=== PATIENT | female | born 1990 | race Caucasian/White ===

== ENCOUNTER 2020-08-06 10:18 | Observation (INO) | payer OTHER, SELFPAY ==
[2020-08-06] VITALS (13 sets, daily range): BP systolic 93–155; BP diastolic 46–99; PULSE 72–86; RESP 14–18; TEMP 36.2–37.2; O2SAT 92–100; BMI 34.4
--- NOTE | 2020-08-06 10:32 | ED_ITS ---
HPI - Abdominal Pain General: Chief Complaint: Abdominal Pain Stated Complaint: Abdominal Pain Time Seen by Provider: 08/06/20 10:21 History of Present Illness: HPI narrative: 30-year-old female comes in complaining of right upper quadrant pain epigastric pain radiating around to her back and across to the left side. She relates she began yesterday few hours after eating fast food. She has had previous episodes in the past with similar symptoms not quite as intense. She has been nauseous without vomiting or diarrhea. She is had dark-colored stools in the past of these episodes but never had any acholic school stools or melanic stools or frankly bloody stools MD elicited complaint: abdominal pain Onset (ago): hour(s) Pain Consistency: constant Location: Epigastric Severity: moderate Quality: cramping Radiation: LUQ, RUQ and back Migration to: no migration Exacerbating factors: eating ([place] foods) Relieving factors: nothing Associated Symptoms: Reports anorexia, belching, bloating, change in bowel habits, change in stool character and GI cramping; Denies chills, coffee ground emesis, constipation, diarrhea, dyspepsia, dysuria, excessive flatus, fever(s), heartburn, hematochezia, hematuria, hematemesis, fecal incontinence, loose stools, melena, nausea, poor appetite, syncope and vomiting Review of Systems Const: Denies: fever(s) or chills ENMT: Denies: throat pain, ear or mastoid pain, nasal discharge or nasal congestion Card: Denies: syncope Resp: Denies: dyspnea, productive cough or non-productive cough GI: Reports: bloating, GI cramping, belching, change in bowel habits and change in stool character; Denies: nausea, vomiting, hematemesis, coffee ground emesis, heartburn, diarrhea, constipation, excessive flatus, fecal incontinence, hematochezia or melena : Denies: dysuria or hematuria Skin/Breast: Denies: rash or pruritus [facility] ED PFSH: Medical History (Updated 08/06/20 @ 16:05 by Pa Newby MD) Anemia Family History (Updated 08/06/20 @ 16:05 by Pa Newby MD) Other Cancer Social History (Updated 08/06/20 @ 16:05 by Pa Newby MD) Smoking and tobacco status: current every day smoker Alcohol intake: current Substance/Drug Use: unknown Household members: spouse Housing: House Physical Exam Const: COMMON NORMALS: no acute distress GENERAL APPEARANCE: cooperative and comfortable ORIENTATION/CONSCIOUSNESS: Yes awake, Yes oriented to person, Yes oriented to place and Yes oriented to time HENMT: COMMON NORMALS: normocephalic, atraumatic and hearing grossly normal bilaterally HEAD & SCALP: normocephalic and atraumatic Neck/C-Spine: COMMON NORMALS: no JVD Resp: COMMON NORMALS: normal respiratory effort, No retractions, No use of accessory muscles and clear to auscultation bilaterally AUSCULTATION: clear to auscultation bilaterally Cardio: COMMON NORMALS: no JVD, regular rate, regular rhythm and No murmurs present (Cardio) RATE: regular rate RHYTHM: regular rhythm GI: COMMON NORMALS: Soft to palpation and No hepatosplenomegaly present AUS CULTATION: Yes normoactive bowel sounds PALPATION: Yes Soft to palpation, Yes Tenderness to palpation present (GI) Details: RUQ (Positive Mcgarry's), No Guarding due to palpation present (GI) and Yes No hepatosplenomegaly present Extremity: COMMON NORMALS: normal to inspection, capillary refill normal, no clubbing, cyanosis or edema, no calf tenderness and no pedal edema Neuro: SENSORIUM/ORIENTATION: Yes oriented to person, Yes oriented to place and Yes oriented to time Skin: COMMON NORMALS: no rashes or lesions noted GENERAL SKIN EXAM: no rashes or lesions noted Course Vital Signs: Vital signs: Vital Signs Temperature 97.9 F 08/07/20 13:07 Pulse Rate 73 08/07/20 13:07 Respiratory Rate 18 08/07/20 13:07 Blood Pressure 120/69 08/07/20 13:07 Pulse Oximetry 96 08/07/20 13:07 MDM - Abdominal Pain MDM Narrative: Medical decision making narrative: Presenting hemoglobin 5.3. Will admit for IV proton pump inhibitor as well as possible EGD a lot of her losses are chronic. She has had problems with excessive vaginal bleeding in the past but has not had a period in 3 months. We will go ahead and admit her to the hospitalist service. Lab Data: Labs: Lab Results 08/06/20 08/06/20 08/06/20 Range/Units 10:36 10:36 10:36 WBC Cancelled Corrected WBC Cancelled RBC Cancelled Hgb Cancelled Hct Cancelled MCV Cancelled MCH Cancelled MCHC Cancelled RDW Cancelled Plt Count Cancelled MPV Cancelled Gran % Cancelled Neut % (Auto) Cancelled Lymph % (Auto) Cancelled [place] % (Auto) Cancelled Eos % (Auto) Cancelled Baso % (Auto) Cancelled Reticulocyte % (Au to) % Neut # (Auto) Cancelled Lymph # (Auto) Cancelled [place] # (Auto) Cancelled Eos # (Auto) Cancelled Baso # (Auto) Cancelled Absolute Gran (aut o) Cancelled Nucleated RBC % (a uto) Cancelled Nucleated RBCs # Cancelled ESR (0-15) mm/hr PT (12.1-14.9) SECO NDS INR (0.8-1.2) Sodium 139 (136-145) mmol/L Potassium 4.0 (3.5-5.1) mmol/L Chloride 106 (98-107) mmol/L Carbon Dioxide 24 (22-29) mmol/L Anion Gap 13.0 (5-19) BUN 14 (6-20) mg/dL Creatinine 0.5 (0.5-0.9) mg/dL GFR Calculation 143.9 H (90-130) mL/min Glucose 101 (65-115) mg/dL Calculated Osmolal ity 289 (285-295) mOsm/k g Calcium 9.0 (8.5-10.5) mg/dL Magnesium 2.0 (1.7-2.3) mg/dL Iron (37-145) ug/dL TIBC mcg/dl % Saturation (20-50) % Unsat Iron Binding (112-347) ug/dL Total Bilirubin 0.3 (0.15-1.2) mg/dL AST 9 (0-32) U/L ALT 7 (0-33) U/L Alkaline Phosphata se 113 H (35-105) IU/L C-Reactive Protein (0.0-4.9) mg/L Total Protein 7.6 (6.6-8.7) g/dL Albumin 4.4 (3.5-5.2) g/dL Globulin 3.2 (1.3-4.6) g/dL Lipase 28 (13-60) U/L Vitamin B12 (232-1245) pg/mL Folate (4.8-37.3) ng/mL TSH (0.27-4.20) uIU/ mL HCG, Qual Negative (Negative) Urine Color (Yellow) Urine Appearance (CLEAR) Urine pH (5-7) Ur Specific Gravit y (1.005-1.030) Urine Protein (Negative) Urine Glucose (UA) (Normal) Urine Ketones (Negative) Urine Blood (Negative) Urine Nitrate (Negative) Urine Bilirubin (Negative) Urine Urobilinogen (Negative) mg/dL Ur Leukocyte Sirena ase (Negative) Urine RBC (0-2) /hpf Urine WBC (0-5) /hpf Ur Squamous Epith Cells (0-5) /hpf Amorphous Sediment Urine Bacteria (NONE) /hpf Urine Mucus /hpf Blood Type Rho(D) Type Antibody Screen Crossmatch 08/06/20 08/06/20 08/06/20 Range/Units 10:36 10:36 10:36 WBC Corrected WBC RBC Hgb Hct MCV MCH MCHC RDW Plt Count MPV Gran % Neut % (Auto) Lymph % (Auto) [place] % (Auto) Eos % (Auto) Baso % (Auto) Reticulocyte % (Au to) 1.6200 % Neut # (Auto) Lymph # (Auto) [place] # (Auto) Eos # (Auto) Baso # (Auto) Absolute Gran (aut o) Nucleated RBC % (a uto) Nucleated RBCs # ESR (0-15) mm/hr PT (12.1-14.9) SECO NDS INR (0.8-1.2) Sodium (136-145) mmol/L Potassium (3.5-5.1) mmol/L Chloride (98-107) mmol/L Carbon Dioxide (22-29) mmol/L Anion Gap (5-19) BUN (6-20) mg/dL Creatinine (0.5-0.9) mg/dL GFR Calculation (90-130) mL/min Glucose (65-115) mg/dL Calculated Osmolal ity (285-295) mOsm/k g Calcium (8.5-10.5) mg/dL Magnesium (1.7-2.3) mg/dL Iron 12 L (37-145) ug/dL TIBC 352 mcg/dl % Saturation 3.4 L (20-50) % Unsat Iron Binding 340 (112-347) ug/dL Total Bilirubin (0.15-1.2) mg/dL AST (0-32) U/L ALT (0-33) U/L Alkaline Phosphata se (35-105) IU/L C-Reactive Protein (0.0-4.9) mg/L Total Protein (6.6-8.7) g/dL Albumin (3.5-5.2) g/dL Globulin (1.3-4.6) g/dL Lipase (13-60) U/L Vitamin B12 640 (232-1245) pg/mL Folate 3.1 L (4.8-37.3) ng/mL TSH (0.27-4.20) uIU/ mL HCG, Qual (Negative) Urine Color (Yellow) Urine Appearance (CLEAR) Urine pH (5-7) Ur Specific Gravit y (1.005-1.030) Urine Protein (Negative) Urine Glucose (UA) (Normal) Urine Ketones (Negative) Urine Blood (Negative) Urine Nitrate (Negative) Urine Bilirubin (Negative) Urine Urobilinogen (Negative) mg/dL Ur Leukocyte Sirena ase (Negative) Urine RBC (0-2) /hpf Urine WBC (0-5) /hpf Ur Squamous Epith Cells (0-5) /hpf Amorphous Sediment Urine Bacteria (NONE) /hpf Urine Mucus /hpf Blood Type Rho(D) Type Antibody Screen Crossmatch 08/06/20 08/06/20 08/06/20 Range/Units 10:36 10:36 10:52 WBC Corrected WBC RBC Hgb Hct MCV MCH MCHC RDW Plt Count MPV Gran % Neut % (Auto) Lymph % (Auto) [place] % (Auto) Eos % (Auto) Baso % (Auto) Reticulocyte % (Au to) % Neut # (Auto) Lymph # (Auto) [place] # (Auto) Eos # (Auto) Baso # (Auto) Absolute Gran (aut o) Nucleated RBC % (a uto) Nucleated RBCs # ESR (0-15) mm/hr PT 14.10 (12.1-14.9) SECO NDS INR 1.06 (0.8-1.2) Sodium (136-145) mmol/L Potassium (3.5-5.1) mmol/L Chloride (98-107) mmol/L Carbon Dioxide (22-29) mmol/L Anion Gap (5-19) BUN (6-20) mg/dL Creatinine (0.5-0.9) mg/dL GFR Calculation (90-130) mL/min Glucose (65-115) mg/dL Calculated Osmolal ity (285-295) mOsm/k g Calcium (8.5-10.5) mg/dL Magnesium (1.7-2.3) mg/dL Iron (37-145) ug/dL TIBC mcg/dl % Saturation (20-50) % Unsat Iron Binding (112-347) ug/dL Total Bilirubin (0.15-1.2) mg/dL AST (0-32) U/L ALT (0-33) U/L Alkaline Phosphata se (35-105) IU/L C-Reactive Protein (0.0-4.9) mg/L Total Protein (6.6-8.7) g/dL Albumin (3.5-5.2) g/dL Globulin (1.3-4.6) g/dL Lipase (13-60) U/L Vitamin B12 (232-1245) pg/mL Folate (4.8-37.3) ng/mL TSH 1.37 (0.27-4.20) uIU/ mL HCG, Qual (Negative) Urine Color Yellow (Yellow) Urine Appearance Sl hazy (CLEAR) Urine pH 5 (5-7) Ur Specific Gravit y 1.025 (1.005-1.030) Urine Protein Neg (Negative) Urine Glucose (UA) Norm (Normal) Urine Ketones Negative (Negative) Urine Blood Neg (Negative) Urine Nitrate Negative (Negative) Urine Bilirubin 1+ H (Negative) Urine Urobilinogen Norm (Negative) mg/dL Ur Leukocyte Sirena ase Negative (Negative) Urine RBC None (0-2) /hpf Urine WBC None (0-5) /hpf Ur Squamous Epith Cells 0-4 H (0-5) /hpf Amorphous Sediment Not Reportable Urine Bacteria Trace (NONE) /hpf Urine Mucus Trace /hpf Blood Type Rho(D) Type Antibody Screen Crossmatch 08/06/20 08/06/20 08/06/20 Range/Units 11:04 11:04 11:04 WBC 4.1 Corrected WBC RBC 3.75 L Hgb 5.3 L* Hct 22.6 L MCV 60.3 L MCH 14.1 L MCHC 23.5 L RDW 22.2 H Plt Count 204 MPV 9.9 Gran % Neut % (Auto) 62.3 Lymph % (Auto) 26.5 [place] % (Auto) 7.1 Eos % (Auto) 3.2 Baso % (Auto) 0.7 Reticulocyte % (Au to) % Neut # (Auto) 2.54 Lymph # (Auto) 1.1 [place] # (Auto) 0.3 Eos # (Auto) 0.1 Baso # (Auto) 0.0 Absolute Gran (aut o) Nucleated RBC % (a uto) 0 Nucleated RBCs # 0.0 ESR 63 H (0-15) mm/hr PT (12.1-14.9) SECO NDS INR (0.8-1.2) Sodium (136-145) mmol/L Potassium (3.5-5.1) mmol/L Chloride (98-107) mmol/L Carbon Dioxide (22-29) mmol/L Anion Gap (5-19) BUN (6-20) mg/dL Creatinine (0.5-0.9) mg/dL GFR Calculation (90-130) mL/min Glucose (65-115) mg/dL Calculated Osmolal ity (285-295) mOsm/k g Calcium (8.5-10.5) mg/dL Magnesium (1.7-2.3) mg/dL Iron (37-145) ug/dL TIBC mcg/dl % Saturation (20-50) % Unsat Iron Binding (112-347) ug/dL Total Bilirubin (0.15-1.2) mg/dL AST (0-32) U/L ALT (0-33) U/L Alkaline Phosphata se (35-105) IU/L C-Reactive Protein 10.1 H (0.0-4.9) mg/L Total Protein (6.6-8.7) g/dL Albumin (3.5-5.2) g/dL Globulin (1.3-4.6) g/dL Lipase (13-60) U/L Vitamin B12 (232-1245) pg/mL Folate (4.8-37.3) ng/mL TSH (0.27-4.20) uIU/ mL HCG, Qual (Negative) Urine Color (Yellow) Urine Appearance (CLEAR) Urine pH (5-7) Ur Specific Gravit y (1.005-1.030) Urine Protein (Negative) Urine Glucose (UA) (Normal) Urine Ketones (Negative) Urine Blood (Negative) Urine Nitrate (Negative) Urine Bilirubin (Negative) Urine Urobilinogen (Negative) mg/dL Ur Leukocyte Sirena ase (Negative) Urine RBC (0-2) /hpf Urine WBC (0-5) /hpf Ur Squamous Epith Cells (0-5) /hpf Amorphous Sediment Urine Bacteria (NONE) /hpf Urine Mucus /hpf Blood Type Rho(D) Type Antibody Screen Crossmatch 08/06/20 Range/Units 11:45 WBC Corrected WBC RBC Hgb Hct MCV MCH MCHC RDW Plt Count MPV Gran % Neut % (Auto) Lymph % (Auto) [place] % (Auto) Eos % (Auto) Baso % (Auto) Reticulocyte % (Au to) % Neut # (Auto) Lymph # (Auto) [place] # (Auto) Eos # (Auto) Baso # (Auto) Absolute Gran (aut o) Nucleated RBC % (a uto) Nucleated RBCs # ESR (0-15) mm/hr PT (12.1-14.9) SECO NDS INR (0.8-1.2) Sodium (136-145) mmol/L Potassium (3.5-5.1) mmol/L Chloride (98-107) mmol/L Carbon Dioxide (22-29) mmol/L Anion Gap (5-19) BUN (6-20) mg/dL Creatinine (0.5-0.9) mg/dL GFR Calculation (90-130) mL/min Glucose (65-115) mg/dL Calculated Osmolal ity (285-295) mOsm/k g Calcium (8.5-10.5) mg/dL Magnesium (1.7-2.3) mg/dL Iron (37-145) ug/dL TIBC mcg/dl % Saturation (20-50) % Unsat Iron Binding (112-347) ug/dL Total Bilirubin (0.15-1.2) mg/dL AST (0-32) U/L ALT (0-33) U/L Alkaline Phosphata se (35-105) IU/L C-Reactive Protein (0.0-4.9) mg/L Total Protein (6.6-8.7) g/dL Albumin (3.5-5.2) g/dL Globulin (1.3-4.6) g/dL Lipase (13-60) U/L Vitamin B12 (232-1245) pg/mL Folate (4.8-37.3) ng/mL TSH (0.27-4.20) uIU/ mL HCG, Qual (Negative) Urine Color (Yellow) Urine Appearance (CLEAR) Urine pH (5-7) Ur Specific Gravit y (1.005-1.030) Urine Protein (Negative) Urine Glucose (UA) (Normal) Urine Ketones (Negative) Urine Blood (Negative) Urine Nitrate (Negative) Urine Bilirubin (Negative) Urine Urobilinogen (Negative) mg/dL Ur Leukocyte Sirena ase (Negative) Urine RBC (0-2) /hpf Urine WBC (0-5) /hpf Ur Squamous Epith Cells (0-5) /hpf Amorphous Sediment Urine Bacteria (NONE) /hpf Urine Mucus /hpf Blood Type O Positive Rho(D) Type Positive Antibody Screen Negative Crossmatch See Detail Discharge Plan Discharge Patient Disposition: Admitted As Inpatient Admit Provider: Pa Newby Condition: Stable Discharge Diet: Regular Discharge Activity: Resume usual activity Patient Instructions: Omeprazole (By mouth), Folic Acid (By mouth), Bisacodyl (By mouth), Acute Abdominal Pain (GEN), Anemia (GEN) Additional Instructions: Please follow-up with your primary care provider within next 1 week. You might need to follow-up with Dr. Terry who from residence life director for further work-up of anemia. Discharge Date/Time: 08/06/20 14:04 Coding Level of Care Code ED Director Of Design for [facility] Fwd Exam Comprehensive
--- NOTE | 2020-08-06 10:45 | USR_ITS ---
PROCEDURE INFORMATION: Exam: US Abdomen, Limited; Right Upper Quadrant Exam date and time: 08/06/2020 11:40 AM Age: 30 years old Clinical indication: Abdominal pain; Epigastric; Additional info: Ruq abd pain TECHNIQUE: Imaging protocol: US abdomen. Real time ultrasound with image documentation. Limited exam focused on the right upper quadrant. COMPARISON: CT abdomen pelvis w con* [id number] 01/27/2014 2:31 AM FINDINGS: Liver: 15.6 cm liver. Gallbladder: 2.1 mm gallbladder wall. Sonographically negative Mcgarry's sign suggesting no cholecystitis. Common bile duct: 3.1 mm common bile duct. Pancreas: Pancreas mostly obscured by bowel gas. Right kidney: 12.7 x 4.1 x 5.1 cm right kidney. 1.0 cm right renal cortex. Aorta: 1.4 cm abdominal aortic diameter. Portal venous: Patent portal vein. Inferior vena cava: 1.5 cm IVC diameter. Other findings: Examination is limited by bowel gas. US/US gall bladder [id number] IMPRESSION: Normal gallbladder.
--- NOTE | 2020-08-06 10:46 | XRR_ITS ---
PROCEDURE INFORMATION: Exam: XR Chest, 1 View Exam date and time: 08/06/2020 10:47 AM Age: 30 years old Clinical indication: Pain; Other: Epigastric; Additional info: Dyspnea/cough TECHNIQUE: Imaging protocol: XR of the chest Views: 1 view. COMPARISON: No relevant prior studies available. FINDINGS: Lungs: Unremarkable. No consolidation. Pleural space: Unremarkable. No pleural effusion. No pneumothorax. Heart/Mediastinum: Unremarkable. No cardiomegaly. Bones/joints: Unremarkable. XR/XR chest 1V portable [id number] IMPRESSION: No acute findings.
[2020-08-06 11:07] LABS: Bilirubin Urine 1+ (Negative); Blood Urine Neg (Negative); Glucose Urine UA Norm (Normal); Ketones Urine Negative (Negative); Nitrate Urine Negative (Negative); Protein Urine Neg (Negative); Specific Gravity, Urine 1.025 (1.005-1.030); Urine Appearance SL Hazy (CLEAR); Urine Color Yellow (Yellow); Urobilinogen Urine Norm (Negative); pH Urine 5 (5-7)
[2020-08-06 11:08] LABS: Add Urine Culture? No; Add Urine Microscopic? YES; Bacteria Urine TRACE /hpf; Leukocyte Esterase Urine Negative (Negative); Mucus Urine TRACE /hpf; Squamous Epithelial Cell Urine 0-4 /hpf (0-5)
[2020-08-06 11:09] LABS: Alanine Aminotransferase 7 U/L (0-33); Albumin Level 4.4 g/dL (3.5-5.2); Alkaline Phosphatase 113 IU/L (35-105); Aspartate Amino Transferase 9 U/L (0-32); Blood Urea Nitrogen 14 mg/dL (6-20); Carbon Dioxide 24 mmol/L (22-29); Chloride 106 mmol/L (98-107); Creatinine Clr Calc Pharmacy 197.8489; Globulin 3.2 g/dL (1.3-4.6); Glomerular Filtration Rate 143.9 mL/min (90-130); Glucose 101 mg/dL (65-115); Lipase 28 U/L (13-60); Osmolality Calculated 289 mOsm/kg (285-295); Sodium 139 mmol/L (136-145); Total Bilirubin 0.3 mg/dL (0.15-1.2); Total Protein 7.6 g/dL (6.6-8.7)
[2020-08-06 11:14] LABS: Basophils % 0.7 %; Eosinophils # 0.1 10^3/uL (0.0-0.8); Eosinophils % 3.2 %; Hematocrit 22.6 % (37.0-47.0); Lymphocytes # 1.1 10^3/uL (0.8-4.8); Lymphocytes % 26.5 %; Mean Corpuscular HGB Conc 23.5 g/dL (30.0-36.0); Mean Corpuscular Hemoglobin 14.1 pg (28.0-34.0); Mean Corpuscular Volume 60.3 fL (81-99); Monocytes # 0.3 10^3/uL (0.2-0.9); Monocytes % 7.1 %; Neutrophils # 2.54 10^3/uL (1.8-7.7); Neutrophils % 62.3 %; Nucleated Red Blood Cells % 0 %; Platelet Count 204 10^3/cmm (130-400); Red Blood Count 3.75 10^6/uL (4.1-5.3); Red Cell Distribution Width 22.2 % (12.1-15.1); White Blood Count 4.1 10^3/uL (4.0-10.0)
[2020-08-06 11:15] LABS: Mean Platelet Volume 9.9 fL (7.4-10.4)
[2020-08-06 11:16] LABS: Hemoglobin 5.3 g/dL (11.5-15.3)
[2020-08-06 11:16] LABS: HCG, Serum Qual Negative (Negative)
--- NOTE | 2020-08-06 11:31 | CTR_ITS ---
PROCEDURE INFORMATION: Exam: CT Abdomen And Pelvis With Contrast Exam date and time: 08/06/2020 11:53 AM Age: 30 years old Clinical indication: Abdominal pain; Epigastric; Additional info: Abd pain TECHNIQUE: Imaging protocol: Computed tomography of the abdomen and pelvis with intravenous contrast. Radiation optimization: All CT scans at this facility use at least one of these dose optimization techniques: automated exposure control; mA and/or kV adjustment per patient size (includes targeted exams where dose is matched to clinical indication); or iterative reconstruction. Contrast material: OMNI 300; Contrast volume: 95 ml; Contrast route: INTRAVENOUS (IV); COMPARISON: CT abdomen pelvis w con* [id number] 01/27/2014 2:31 AM RADIATION DOSE METRICS: Total DLP (mGy-cm): 1462.84 FINDINGS: Liver: Normal. No mass. Gallbladder and bile ducts: Normal. No calcified stones. No ductal dilation. Pancreas: Normal. No ductal dilation. Spleen: Normal. No splenomegaly. Adrenals: Normal. No mass. Kidneys and ureters: Normal. No hydronephrosis. Stomach and bowel: Unremarkable. No obstruction. No mucosal thickening. Appendix: No evidence of appendicitis. Intraperitoneal space: Unremarkable. No free air. No significant fluid collection. Vasculature: Unremarkable. No abdominal aortic aneurysm. Lymph nodes: Unremarkable. No enlarged lymph nodes. Urinary bladder: Unremarkable as visualized. Reproductive: Unremarkable as visualized. Bones/joints: Unremarkable. No acute fracture. Soft tissues: Unremarkable. Other findings: Mild levoscoliosis. CT/CT abdomen pelvis w con* [id number] IMPRESSION: No acute findings. Radiation Dose CTDIVOL = (mGy): DLP = 1462.84 (mGy-cm)
[2020-08-06] MEDS: iohexol 300 mg/mL 100 mL Btl IV (12:01)
[2020-08-06] MEDS: pantoprazole 40 mg SDV IVP (12:49)
[2020-08-06 14:40] LABS: INR 1.06 (0.8-1.2)
[2020-08-06 14:42] LABS: Thyroid Stimulating Hormone 1.37 uIU/mL (0.27-4.20)
[2020-08-06 14:49] LABS: Folate Level 3.1 ng/mL (4.8-37.3)
[2020-08-06 14:50] LABS: Iron 12 ug/dL (37-145); Percent Saturation 3.4 % (20-50); Total Iron Binding Capacity 352 mcg/dl; Unsaturated Iron Binding 340 ug/dL (112-347); Vitamin B12 640 pg/mL (232-1245)
--- NOTE | 2020-08-06 16:01 | PM.HP ---
Providers/Chief Complaint Admitting Physician: Pa Newby MD Primary Care Provider: Zonia Rios MD Chief Complaint: Abdominal Pain History of Present Illness Monisha Armendariz is a 30 year old female no segment past medical history other than anemia who presented to the ER today because of epigastric pain which has been going on for last 1 month. As per the patient epigastric pain got worse today so she came to the ER. Denies of any diarrhea, nausea, vomiting, hematemesis, melena. She states pain will usually start after having a small meal and would go away on its own in 15-20 minutes. Does not have pain at night while sleeping. Denies of having any dizziness, palpitation, difficulty in breathing, falls, loss of consciousness. States her last menstrual period was in March. She states from what she remembers she is always been anemic. She remembers being easy to bruise as well but has never had blood transfusions in the past or bleeding in any of her joints. She has not had blood work recently other than a year ago when she gave . Only pertinent family history is skin cancer and grandmother. She states her maternal grandmother is from [place] and is not sure if anybody else in the family has history of anemia. Blood work in the ER showed white count of 4.1, hemoglobin of 5.3, MCV of 60, MCH of 14, RDW of 22, MCHC of 23.5, platelet count of 204, sodium of 139, chloride of 24, creatinine of 0.5, AST/ALT of 9/7, alkaline phosphatase of 113, UA negative for blood negative for nitrite negative leuk esterase, beta-hCG negative with abdominal CT scan negative for any acute findings, gallbladder ultrasound also coming out to be normal. Review of Systems General: Reports: 10 or more systems reviewed and unremarkable except in HPI and below Const: Denies: fever(s), chills, body aches, change in appetite, change in weight, malaise, night sweats, diaphoresis, change in sleep pattern, daytime sleepiness or snoring Eyes: Denies: change in vision, blurry vision, photophobia, eye discomfort or eye discharge ENMT: Denies: throat pain, enlarged tonsils, hoarseness, mouth pain, oral sores, dry mouth, tinnitus, nasal congestion or post nasal drip Card: Denies: chest pain, palpitations, irregular heart rhythm, edema, swelling of feet/ankles, lightheadedness, syncope, pre-syncope, dyspnea on exertion, orthopnea, leg pain with exertion or acrocyanosis Resp: Denies: dyspnea, productive cough, non-productive cough, wheezing, stridor, pain on inspiration, change in phlegm color, hemoptysis or chest congestion GI: Denies: abdominal pain, nausea, vomiting, hematemesis, coffee ground emesis, dysphagia, heartburn, diarrhea, constipation, bloating, GI cramping, change in bowel habits, pain on defecation, hematochezia or melena : Denies: flank pain, dysuria, urinary frequency, urinary urgency, urinary hesitancy, nocturia or hematuria Musc: Denies: neck pain, back pain, extremity pain, joint pain, joint swelling, joint redness, joint stiffness or limited range of motion Neuro: Denies: headache(s), numbness in extremities, weakness in extremities, sensory changes, lack of coordination, difficulty walking, frequent falls, dizziness, vertigo, confusion, Slurred speech present, difficulty communicating thoughts or seizure-like activity Psych: Denies: anxiety, depression, mood swings, panic attacks, hopelessness or irritability Endo: Denies: polyuria, polydipsia, tired all the time, cold intolerance, excessive sweating, flushing or heat intolerance Jcaoby/Lymph: Denies: easy bruising or easy bleeding All/Imm: Denies: tongue swelling, facial swelling or acute wheezing Medications/Allergies Home Medications Medication Instructions Recorded Confirmed Last Taken Type No Known Home Medications 08/06/20 08/06/20 Unknown History Allergies Allergy/AdvReac Type Severity Reaction Status Date / Time No Known Allergies Allergy Verified 08/06/20 10:25 PFSH Acute PFSH: Medical History (Updated 08/06/20 @ 16:05 by Pa Newby MD) Anemia Family History (Updated 08/06/20 @ 16:05 by Pa Newby MD) Other Cancer Social History (Updated 08/06/20 @ 16:05 by Pa Newby MD) Smoking and tobacco status: current every day smoker Alcohol intake: current Substance/Drug Use: unknown Household members: spouse Housing: House Vitals/I&O/Wt Last Vital Signs Temp 98.0 F 08/06/20 15:19 Pulse 82 08/06/20 15:19 Resp 18 08/06/20 15:19 BP 105/47 08/06/20 15:19 Pulse Ox 99 08/06/20 14:10 08/06/20 08/06/20 08/06/20 06:59 14:59 22:59 Intake Total 0 / 0 Balance 0 / 0 Weight last 48 hrs Weight 99.79 kg Physical Exam Narrative: EXAM NARRATIVE: General: No acute distress, AO x3, pallor present HEENT: PERRLA, pupils bilaterally equal and reactive Chest: Normal vesicular breath sounds, no added sounds, equal good air entry bilaterally CVS: S1-S2 regular, soft systolic murmur at the aortic area, no tachycardia, no gallops, no rubs Abdomen: Soft, nontender, no organomegaly, bowel sounds present Neuro: No focal deficits, no facial deformity, AO x3, power 5/5 in all limbs Data : 08/06/20 11:04 08/06/20 10:36 A&P Assessment and plan (1) Anemia: Status: Acute (2) Epigastric pain: Status: Acute Additional A&P Information 30-year-old female presented to the ER for epigastric pain found to be severely anemic with hemoglobin of 5.3. Anemia: Check reticulocyte count, iron panel, ferritin, ESR, CRP,, vitamin B12, folate levels, peripheral smear, von Willebrand factor, parvo B19 serology, protein C, protein S. We will try to add reticulocyte count, iron panel, ferritin, CRP, peripheral smear to first blood sample in the ER. All serology can be done tomorrow morning after the transfusion. Patient is already getting functional transfusion. We will transfuse overall 2 units. We will check stool for occult blood. If positive will involve surgery for possible endoscopy. Protonix 40 mg IV twice daily. Regular diet. SCDs for DVT prophylaxis Attestations Medical Necessity Statement*: Admission for less than 2 midnights for profound anemia requiring blood transfusion Time Spent in Patient Care: Greater than 35 minutes (>than 50% of time spent in counselling and/or direct pt care on unit). Coding Level of Care Code Acute Hospital Attendant for [facility] Fwd Diagnoses Anemia D64.9 Epigastric pain R10.13
[2020-08-06 16:23] LABS: C Reactive Protein 10.1 mg/L (0.0-4.9)
[2020-08-06 16:26] LABS: LAB Peripheral Smear Sent for Review
[2020-08-06 16:48] LABS: Erythrocyte Sedimentation Rate 63 mm/hr (0-15)
[2020-08-06 18:09] LABS: Amphetamines Screen Urine Negative (Negative); Barbiturates Screen Urine Negative (Negative); Benzodiazepines Screen Urine Negative (Negative); Cocaine Screen Urine Negative (Negative); Opiate Screen Urine Negative (Negative); PCP Screen Urine Negative (Negative); THC Screen Urine Negative (Negative)
[2020-08-06] MEDS: sodium chloride 0.9% (100 ml) 100 ML 10 ML ×2 (19:26)
[2020-08-06] MEDS: folic acid 1 mg Tablet PO (22:09)
[2020-08-06] MEDS: iron sucrose 200 MG in sodium chloride 0.9% (100 ml) 100 ML 220 MG IV (22:09)
[2020-08-06 22:27] LABS: Hematocrit 28.1 % (37.0-47.0); Hemoglobin 7.5 g/dL (11.5-15.3)
[2020-08-07] VITALS: BP 97/52; PULSE 72; RESP 18; TEMP 36.8; O2SAT 99
[2020-08-07] MEDS: pantoprazole 40 mg SDV IVP (02:00)
[2020-08-07 04:00] VITALS: BP 101/64; PULSE 60; RESP 17; TEMP 36.7; O2SAT 97
[2020-08-07 04:36] LABS: Basophils % 0.6 %; Eosinophils # 0.2 10^3/uL (0.0-0.8); Eosinophils % 4.4 %; Hematocrit 27.4 % (37.0-47.0); Hemoglobin 7.2 g/dL (11.5-15.3); Lymphocytes # 1.4 10^3/uL (0.8-4.8); Lymphocytes % 26.2 %; Mean Corpuscular HGB Conc 26.3 g/dL (30.0-36.0); Mean Corpuscular Hemoglobin 17.2 pg (28.0-34.0); Mean Corpuscular Volume 65.6 fL (81-99); Monocytes # 0.4 10^3/uL (0.2-0.9); Monocytes % 8.1 %; Neutrophils # 3.14 10^3/uL (1.8-7.7); Neutrophils % 60.3 %; Nucleated Red Blood Cells % 0 %; Platelet Count 214 10^3/cmm (130-400); Red Blood Count 4.18 10^6/uL (4.1-5.3); Red Cell Distribution Width 28.2 % (12.1-15.1); White Blood Count 5.2 10^3/uL (4.0-10.0)
[2020-08-07 05:05] LABS: Alanine Aminotransferase 6 U/L (0-33); Albumin Level 3.9 g/dL (3.5-5.2); Alkaline Phosphatase 106 IU/L (35-105); Anion Gap 13.7 (5-19); Aspartate Amino Transferase 12 U/L (0-32); Blood Urea Nitrogen 12 mg/dL (6-20); Carbon Dioxide 22 mmol/L (22-29); Chloride 107 mmol/L (98-107); Glomerular Filtration Rate 97.6 mL/min (90-130); Glucose 104 mg/dL (65-115); Osmolality Calculated 288 mOsm/kg (285-295); Potassium 3.7 mmol/L (3.5-5.1); Sodium 139 mmol/L (136-145); Total Bilirubin 0.5 mg/dL (0.15-1.2); Total Protein 6.9 g/dL (6.6-8.7)
[2020-08-07 08:00] VITALS: BP 116/62; PULSE 73; RESP 18; TEMP 36.7; O2SAT 94
[2020-08-07] MEDS: folic acid 1 mg Tablet PO (08:19)
[2020-08-07 08:51] LABS: Ferritin 16 ng/mL (15-150)
[2020-08-07 11:55] VITALS: BP 120/69; PULSE 73; RESP 18; TEMP 36.6; O2SAT 96
--- NOTE | 2020-08-07 12:54 | P.DS_ITS ---
Discharge Providers Date of Admission: 08/06/20 12:46 Date of Discharge: August 07, 2020 Attending Provider at Admission: Pa Newby MD Attending Provider at Discharge: Pa Newby MD Primary Care Provider: Zonia Rios MD Diagnoses at Discharge Discharge Diagnosis (1) Anemia: Status: Acute (2) Epigastric pain: Status: Acute Reason for Visit Reason for Visit: Abdominal Pain Hospital Course Discharge Summary: Monisha Armendariz is a 30 year old female no segment past medical history other than anemia who presented to the ER today because of epigastric pain which has been going on for last 1 month. As per the patient epigastric pain got worse today so she came to the ER. Denies of any diarrhea, nausea, vomiting, hematemesis, melena. She states pain will usually start after having a small meal and would go away on its own in 15-20 minutes. Does not have pain at night while sleeping. Denies of having any dizziness, palpitation, difficulty in breathing, falls, loss of consciousness. States her last menstrual period was in March. She states from what she remembers she is always been anemic. She remembers being easy to bruise as well but has never had blood transfusions in the past or bleeding in any of her joints. She has not had blood work recently other than a year ago when she gave . Only pertinent family history is skin cancer and grandmother. She states her maternal grandmother is from [place] and is not sure if anybody else in the family has history of anemia. Blood work in the ER showed white count of 4.1, hemoglobin of 5.3, MCV of 60, MCH of 14, RDW of 22, MCHC of 23.5, platelet count of 204, sodium of 139, chloride of 24, creatinine of 0.5, AST/ALT of 9/7, alkaline phosphatase of 113, UA negative for blood negative for nitrite negative leuk esterase, beta-hCG negative with abdominal CT scan negative for any acute findings, gallbladder ultrasound also coming out to be normal. Patient was admitted to the hospital and was transfused 2 units of PRBC. On admission patient was also complaining of epigastric pain and nausea. Abdomen CT and ultrasound gallbladder was done and were both benign. Abdomen epigastric pain is most likely secondary to gastritis. She responded well to the treatment and her hemoglobin came up to 7.2. Her blood work for evaluation of anemia showed iron deficiency anemia along with low folate levels. Her reticulocyte count was also on the lower side which was consistent with hypoproliferation. She was started on IV iron of which she got 2 doses and she will be discharged on oral iron supplementation along with folic acid. Stool for occult blood was tested and was negative. Other blood work including von Willebrand factor, protein C, protein S, peripheral smear still awaited. Patient is advised to f ollow-up with her primary care provider within next 1 week. Patient states she will be making an appointment with Dr. Cabrales for her family and will follow up with the lab accordingly. Patient might require to have a referral to see Dr. Terry as an outpatient for further evaluation of anemia. Patient is aware of the same and is agreeable to same as well. Physical Exam Narrative: EXAM NARRATIVE: General: No acute distress, AO x3, pallor present but better than on admission HEENT: PERRLA, pupils bilaterally equal and reactive Chest: Normal vesicular breath sounds, no added sounds, equal good air entry bilaterally CVS: S1-S2 regular, soft systolic murmur at the aortic area, no tachycardia, no gallops, no rubs Abdomen: Soft, nontender, no organomegaly, bowel sounds present Neuro: No focal deficits, no facial deformity, AO x3, power 5/5 in all limbs Discharge Data Data Completed and Pending: Completed Studies During Hospitalization Category Date Time Status CT abdomen pelvis w con* [id number] Stat Cat Scan 08/06/20 11:31 Completed XR chest 1V trisha ble [id number] Stat Exams 08/06/20 10:46 Completed US gall bladder 7 [id number] Urgent Ultrasound 08/06/20 10:45 Completed Pending at discharge Category Date Time Status Helicobacter Pylo ri AG Stool Stat Lab 08/06/20 16:55 Received Miscellaneous Carmenza t QAM Lab 08/07/20 04:03 Received PROTEIN C, ACTIVI TY Routine Lab 08/06/20 16:18 Received PROTEIN S, ACTIVI TY Routine Lab 08/06/20 16:18 Received Von Willebrand Mu ltimeric PNL QAM Lab 08/07/20 04:03 Received Labs from last 24 hours 08/07/20 08/07/20 08/07/20 04:03 04:03 04:03 WBC RBC Hgb Hct MCV MCH MCHC RDW Plt Count MPV Neut % (Auto) Lymph % (Auto) [place] % (Auto) Eos % (Auto) Baso % (Auto) Reticulocyte % (Au to) Neut # (Auto) Lymph # (Auto) [place] # (Auto) Eos # (Auto) Baso # (Auto) Nucleated RBC % (a uto) Nucleated RBCs # ESR PT INR Prot C Funct Activ ity Protein S Activity Factor VIII Activi ty Pending von Willebrand Ant igen Pending vWF Ag Interpretat ion Pending vWF Multimeric Ant igen Pending vWF Ristocetin Cof actr Pending Von Willebrand Act PTT Pending Sodium 139 Potassium 3.7 Chloride 107 Carbon Dioxide 22 Anion Gap 13.7 BUN 12 Creatinine 0.7 GFR Calculation 97.6 Glucose 104 Calculated Osmolal ity 288 Calcium 9.0 Iron TIBC % Saturation Unsat Iron Binding Ferritin Total Bilirubin 0.5 AST 12 ALT 6 Alkaline Phosphata se 106 H C-Reactive Protein Total Protein 6.9 Albumin 3.9 Globulin 3.0 Vitamin B12 Folate TSH Stool H. pylori Ag Urine Opiates Scre en Ur Barbiturates Sc reen Ur Phencyclidine S crn Ur Amphetamines Sc reen U Benzodiazepines Scrn Urine Cocaine Scre en U Marijuana (THC) Screen Misc Test Referenc e Pending Blood Type Rho(D) Type Antibody Screen Crossmatch 08/07/20 08/07/20 08/07/20 04:03 04:03 04:03 WBC 5.2 RBC 4.18 Hgb 7.2 L Hct 27.4 L MCV 65.6 L D MCH 17.2 L D MCHC 26.3 L D RDW 28.2 H Plt Count 214 MPV 9.0 Neut % (Auto) 60.3 Lymph % (Auto) 26.2 [place] % (Auto) 8.1 Eos % (Auto) 4.4 Baso % (Auto) 0.6 Reticulocyte % (Au to) Neut # (Auto) 3.14 Lymph # (Auto) 1.4 [place] # (Auto) 0.4 Eos # (Auto) 0.2 Baso # (Auto) 0.0 Nucleated RBC % (a uto) 0 Nucleated RBCs # 0.0 ESR PT INR Prot C Funct Activ ity Protein S Activity Pending Factor VIII Activi ty von Willebrand Ant igen vWF Ag Interpretat ion vWF Multimeric Ant igen vWF Ristocetin Cof actr Von Willebrand Act PTT Sodium Potassium Chloride Carbon Dioxide Anion Gap BUN Creatinine GFR Calculation Glucose Calculated Osmolal ity Calcium Iron TIBC % Saturation Unsat Iron Binding Ferritin 16 Total Bilirubin AST ALT Alkaline Phosphata se C-Reactive Protein Total Protein Albumin Globulin Vitamin B12 Folate TSH Stool H. pylori Ag Urine Opiates Scre en Ur Barbiturates Sc reen Ur Phencyclidine S crn Ur Amphetamines Sc reen U Benzodiazepines Scrn Urine Cocaine Scre en U Marijuana (THC) Screen Misc Test Referenc e Blood Type Rho(D) Type Antibody Screen Crossmatch 08/07/20 08/06/20 08/06/20 04:03 22:17 16:55 WBC RBC Hgb 7.5 L D Hct 28.1 L MCV MCH MCHC RDW Plt Count MPV Neut % (Auto) Lymph % (Auto) [place] % (Auto) Eos % (Auto) Baso % (Auto) Reticulocyte % (Au to) Neut # (Auto) Lymph # (Auto) [place] # (Auto) Eos # (Auto) Baso # (Auto) Nucleated RBC % (a uto) Nucleated RBCs # ESR PT INR Prot C Funct Activ ity Pending Protein S Activity Factor VIII Activi ty von Willebrand Ant igen vWF Ag Interpretat ion vWF Multimeric Ant igen vWF Ristocetin Cof actr Von Willebrand Act PTT Sodium Potassium Chloride Carbon Dioxide Anion Gap BUN Creatinine GFR Calculation Glucose Calculated Osmolal ity Calcium Iron TIBC % Saturation Unsat Iron Binding Ferritin Total Bilirubin AST ALT Alkaline Phosphata se C-Reactive Protein Total Protein Albumin Globulin Vitamin B12 Folate TSH Stool H. pylori Ag Pending Urine Opiates Scre en Ur Barbiturates Sc reen Ur Phencyclidine S crn Ur Amphetamines Sc reen U Benzodiazepines Scrn Urine Cocaine Scre en U Marijuana (THC) Screen Misc Test Referenc e Blood Type Rho(D) Type Antibody Screen Crossmatch 08/06/20 08/06/20 08/06/20 16:55 11:45 11:04 WBC RBC Hgb Hct MCV MCH MCHC RDW Plt Count MPV Neut % (Auto) Lymph % (Auto) [place] % (Auto) Eos % (Auto) Baso % (Auto) Reticulocyte % (Au to) Neut # (Auto) Lymph # (Auto) [place] # (Auto) Eos # (Auto) Baso # (Auto) Nucleated RBC % (a uto) Nucleated RBCs # ESR PT INR Prot C Funct Activ ity Protein S Activity Factor VIII Activi ty von Willebrand Ant igen vWF Ag Interpretat ion vWF Multimeric Ant igen vWF Ristocetin Cof actr Von Willebrand Act PTT Sodium Potassium Chloride Carbon Dioxide Anion Gap BUN Creatinine GFR Calculation Glucose Calculated Osmolal ity Calcium Iron TIBC % Saturation Unsat Iron Binding Ferritin Total Bilirubin AST ALT Alkaline Phosphata se C-Reactive Protein 10.1 H Total Protein Albumin Globulin Vitamin B12 Folate TSH Stool H. pylori Ag Urine Opiates Scre en Negative Ur Barbiturates Sc reen Negative Ur Phencyclidine S crn Negative Ur Amphetamines Sc reen Negative U Benzodiazepines Scrn Negative Urine Cocaine Scre en Negative U Marijuana (THC) Screen Negative Misc Test Referenc e Blood Type O Positive Rho(D) Type Positive Antibody Screen Negative Crossmatch See Detail 08/06/20 08/06/20 08/06/20 11:04 10:36 10:36 WBC RBC Hgb Hct MCV MCH MCHC RDW Plt Count MPV Neut % (Auto) Lymph % (Auto) [place] % (Auto) Eos % (Auto) Baso % (Auto) Reticulocyte % (Au to) Neut # (Auto) Lymph # (Auto) [place] # (Auto) Eos # (Auto) Baso # (Auto) Nucleated RBC % (a uto) Nucleated RBCs # ESR 63 H PT 14.10 INR 1.06 Prot C Funct Activ ity Protein S Activity Factor VIII Activi ty von Willebrand Ant igen vWF Ag Interpretat ion vWF Multimeric Ant igen vWF Ristocetin Cof actr Von Willebrand Act PTT Sodium Potassium Chloride Carbon Dioxide Anion Gap BUN Creatinine GFR Calculation Glucose Calculated Osmolal ity Calcium Iron TIBC % Saturation Unsat Iron Binding Ferritin Total Bilirubin AST ALT Alkaline Phosphata se C-Reactive Protein Total Protein Albumin Globulin Vitamin B12 Folate TSH 1.37 Stool H. pylori Ag Urine Opiates Scre en Ur Barbiturates Sc reen Ur Phencyclidine S crn Ur Amphetamines Sc reen U Benzodiazepines Scrn Urine Cocaine Scre en U Marijuana (THC) Screen Misc Test Referenc e Blood Type Rho(D) Type Antibody Screen Crossmatch 08/06/20 08/06/20 08/06/20 10:36 10:36 10:36 WBC RBC Hgb Hct MCV MCH MCHC RDW Plt Count MPV Neut % (Auto) Lymph % (Auto) [place] % (Auto) Eos % (Auto) Baso % (Auto) Reticulocyte % (Au to) 1.6200 Neut # (Auto) Lymph # (Auto) [place] # (Auto) Eos # (Auto) Baso # (Auto) Nucleated RBC % (a uto) Nucleated RBCs # ESR PT INR Prot C Funct Activ ity Protein S Activity Factor VIII Activi ty von Willebrand Ant igen vWF Ag Interpretat ion vWF Multimeric Ant igen vWF Ristocetin Cof actr Von Willebrand Act PTT Sodium Potassium Chloride Carbon Dioxide Anion Gap BUN Creatinine GFR Calculation Glucose Calculated Osmolal ity Calcium Iron 12 L TIBC 352 % Saturation 3.4 L Unsat Iron Binding 340 Ferritin Total Bilirubin AST ALT Alkaline Phosphata se C-Reactive Protein Total Protein Albumin Globulin Vitamin B12 640 Folate 3.1 L TSH Stool H. pylori Ag Urine Opiates Scre en Ur Barbiturates Sc reen Ur Phencyclidine S crn Ur Amphetamines Sc reen U Benzodiazepines Scrn Urine Cocaine Scre en U Marijuana (THC) Screen Misc Test Referenc e Blood Type Rho(D) Type Antibody Screen Crossmatch Vitals: Last Vital Signs Temp 97.9 F 08/07/20 11:55 Pulse 73 08/07/20 11:55 Resp 18 08/07/20 11:55 BP 120/69 08/07/20 11:55 Pulse Ox 96 08/07/20 11:55 Discharge Plan Discharge Patient Disposition: Home Condition: Stable Prescriptions: New folic acid 1 mg Tablet 1 mg PO BID Qty: 60 RF: 0 ferrous gluconate 324 mg (38 mg iron) tablet 324 mg PO BID Qty: 60 RF: 0 bisacodyl 5 mg Tablet,Delayed Release (Dr/Ec) 10 mg PO DAILY PRN (Reason: Constipation) Qty: 10 RF: 0 omeprazole 20 mg tablet,delayed release (DR/EC) 20 mg PO DAILY Qty: 30 RF: 0 No Action No Known Home Medications RF: 0 Discharge Orders: Discharge Order (Routine); Ordered 08/07/20 Ordered By: Pa Newby Discharge Diet: Regular Discharge Activity: Resume usual activity Activity Restrictions/Additional Instructions: Please follow-up with your primary care provider within next 1 week. You might need to follow-up with Dr. Terry who from financial reserve clerk for further work-up of anemia. Discharge Attestations Time Spent in Discharge Care*: greater than 30 min Specific Discharge Activities: Specific discharge activities: educating patient, discussing with case briefer/social workers/dc planners, documenting/other paperwork and evaluating patient/reviewing data Status at Discharge: Cognitive status at discharge: cognitively intact , Behavioral status at discharge: cooperative , Functional status at discharge: independent ambulation Overall status at discharge: patient is back to baseline Quality Metrics Clinical Quality Measures During this hospital stay, did patient experience: None Coding Level of Care Code Acute Cvor Nurse for Marcy Castaneda Diagnoses Anemia D64.9 Epigastric pain R10.13
[2020-08-07 13:07] VITALS: BP 120/69; PULSE 73; RESP 18; TEMP 36.6; O2SAT 96
--- NOTE | 2020-08-08 09:49 | PC.RESP ---
SMOKING CESSATION INFORMATION SENT TO PATIENT.
[2020-08-11 03:43] LABS: PROTEIN C, ACTIVITY 37 % (70-180)
[2020-08-11 14:08] LABS: Factor Viii, Activity 86 % normal (50-180); Partial Thromboplastin Time, A 29 sec (22-34)
[2020-08-11 16:38] LABS: Von Willebrand Factor (Rcf) 90 % normal (42-200)
[2020-08-11 17:08] LABS: Von Willebrand Factor Ag 92 % (50-217)
[2020-08-18 07:13] LABS: PROTEIN S, ACTIVITY 54 % normal (60-140)
== END 2020-08-07 13:33 | disposition home or self-care (01) ==
LOC: ER 12:25 → MEDSURG 13:04
PROVIDERS: Admitting Provider Student in an Organized Health Care Education/Training Program; Emergency Provider Family Medicine; PCP Family Medicine; Visit Provider Student in an Organized Health Care Education/Training Program
DX: D64.9 Anemia, unspecified (principal); R10.13 Epigastric pain; F17.210 Nicotine dependence, cigarettes, uncomplicated
CPT/HCPCS: 12345; 36415; 36430; 71045; 74177; 76705; 80053; 80306; 80500; 81001; 82274; 82607; 82728; 82746; 83540; 83550; 83690; 83735; 84443; 84703; 85014; 85018; 85025; 85045; 85240; 85245; 85246; 85303; 85306; 85610; 85651; 86140; 86747; 86850; 86900; 86920; 87338; 94664; 96374; 96375; 99283; 99285; C9113; G0378; J1756; P9016; Q9967

== ENCOUNTER → 2020-08-17 10:23 | Outpatient (BNVA) | payer OTHER, SELFPAY | PROVIDERS: PCP Family Medicine; Visit Provider Obstetrics & Gynecology | DX: N91.5 Oligomenorrhea, unspecified (principal) | CPT/HCPCS: 81025; 84146 ==

== ENCOUNTER 2020-08-18 13:04 | Outpatient (CLI) | payer OTHER, SELFPAY ==
--- NOTE | 2020-08-18 13:19 | XR_ITS ---
WS: [id number] Exam: XR hip BI 3-4V wo/w pel [id number] Date/Time of Exam: 08/18/2020 1:20 PM Reason For Exam: HIP PAIN No fracture or dislocation. The joint compartments of both hips are well preserved. Normal bilateral soft tissues. XR/XR hip BI 3-4V wo/w pel [id number] IMPRESSION: 1. Normal right and left hips.
== END 2020-08-18 13:05 | disposition home or self-care (01) ==
LOC: RADWPI 13:08
PROVIDERS: PCP Family Medicine; Visit Provider Nurse Practitioner
DX: M25.551 Pain in right hip (principal)
CPT/HCPCS: 73522

== ENCOUNTER 2020-09-07 09:38 | Outpatient (CLI) | payer OTHER, SELFPAY ==
[2020-09-07 12:10] LABS: Basophils % 0.3 %; Eosinophils # 0.1 10^3/uL (0.0-0.8); Eosinophils % 2.3 %; Hematocrit 40.9 % (37.0-47.0); Hemoglobin 11.8 g/dL (11.5-15.3); Lymphocytes # 1.4 10^3/uL (0.8-4.8); Lymphocytes % 23.5 %; Mean Corpuscular HGB Conc 28.9 g/dL (30.0-36.0); Mean Corpuscular Volume 79.6 fL (81-99); Monocytes # 0.4 10^3/uL (0.2-0.9); Monocytes % 7.2 %; Neutrophils # 4.03 10^3/uL (1.8-7.7); Neutrophils % 66.2 %; Nucleated Red Blood Cells % 0 %; Platelet Count 210 10^3/cmm (130-400); Red Blood Count 5.14 10^6/uL (4.1-5.3); White Blood Count 6.1 10^3/uL (4.0-10.0)
[2020-09-07 12:28] LABS: Ferritin 54 ng/mL (15-150); Iron 35 ug/dL (37-145); Percent Saturation 12.4 % (20-50); Total Iron Binding Capacity 282 mcg/dl; Unsaturated Iron Binding 247 ug/dL (112-347)
[2020-09-07 12:45] LABS: Erythrocyte Sedimentation Rate 22 mm/hr (0-15)
[2020-09-07 13:21] LABS: Slide Review Slide Review Perform
--- NOTE | 2020-09-07 18:02 | ONC CON_ITS ---
Dr. Terry New Patient Note Patient: Monisha Armendariz Unit #: [id number]: 1990 Dicatated By: Trace Terry M.D.Date of Visit: Sep 07, 2020 Onc MED New Patient/Consult Referring Physician: Dr. Alban Brar M.D. Chief Complaint: Anemia. History of Present Illness: On 08/06/2020 she presented to the emergency room with abdominal pain. She indicates that she also was having weakness/fatigue and shortness of breath. She was significantly anemic with hemoglobin 7.5 g and hematocrit 28.1%. Her red cell indices were severely hypochromic/microcytic with MCV 16 MCH 14. The white blood cell count was 4100 and the platelet count was 204,000. Her sed rate was moderately elevated at 63 mm/hour and the CRP was elevated at 10.1 mg/L. Her serum iron studies show low transferrin saturation at 3.4% and her ferritin was low at 16 ng/mL, consistent with iron deficiency. Gallbladder ultrasound and CT abdomen/pelvis showed no acute findings. She was admitted to the hospital and she was transfused 2 units PRBC. She was discharged the following day, but she apparently then was evaluated at [facility] in [place], where she received another unit of PRBC. By the patient's account, her further evaluation there showed evidence of nonfunctioning gallbladder, for which surgery is planned to be done at a later time. She is seen now in regard to the anemia. She has started oral iron supplementation with 65 mg of elemental iron daily. She has a little nausea, but she otherwise seems to tolerate it well. She is feeling much better. She is back to normal activity, though she still complains of having some shortness of breath. She indicates that she has irregular and really heavy menstrual periods. 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 Brar on 08/17/2020, and apparently is planning to start her on an oral contraceptive. She also complains of having pain in her hips and knees. She has no focal neurologic symptoms. She does complain that she has always bruises very easily. She has not previously had other bleeding manifestations. Past Medical History: Her medical history includes anemia and anxiety/depression. She was diagnosed with rheumatoid arthritis at age 18 months. Past Surgical History: Her surgical/procedural history includes section in 2009, 2012, 2014, and in 2019. Medications: Iron 1 Tablet (of 325 (65 fe) mg) Oral daily, and sertraline 50 mg daily. Allergies: No Known Allergies. Social History: Ms. Armendariz is but . She has history of smoking, previously 1 pack of cigarettes daily. With her last she cut down to 1/2 pack/day. She does not drink alcohol. Family History: Both parents are still living, father at age 63 and mother at age 54. She has diabetes and fibromyalgia, and she apparently also had been anemic one time. A half-brother and a half-sister are in good health. Her maternal grandmother with myelodysplasia. A maternal uncle also had anemia. There is no history of abnormal bleeding in the family. Review Of Symptoms: Constitutional - She has been feeling better following the blood transfusion. She is back to normal activity. Her appetite is good and her weight is stable. She has not had fever or night sweats. She does have some hot flashes. ECOG score is 0, Eyes - No change in vision, ENMT - No hearing loss or tinnitus. No sinus congestion/drainage. No mouth sores. No sore throat or difficulty swallowing, Hematologic/Lymphatic - She bruises easily. She has been anemic with her previous pregnancies, Respiratory - She has shortness of breath. She has cough productive of clear or white sputum. No pleuritic pain or hemoptysis, Cardiovascular - No angina pain. No palpitations, Gastrointestinal - She has nausea off and on. She has heartburn. No diarrhea or constipation. No blood in the stool or black stools, Genitourinary (F) - No dysuria or hematuria. No urinary frequency. No urgency or incontinence. Her periods are irregular and really heavy, Musculoskeletal - She has pain in her hips and knees. She was diagnosed with rheumatoid arthritis at age 18 months, Integumentary - No skin rash, Neurologic - She has occasional headache. She has dizziness. No numbness or tingling. No other focal neurologic symptoms, Psychiatric - She has anxiety and depression. She recently started taking Zoloft. She has difficulty sleeping. Vital Signs: Height is 67-1/2 inches with weight 230 pounds. Blood pressure 122/66, pulse 58, respirations 22, temp 97.5 degrees, oxygen saturation 100%. Physical Examination: Constitutional - She appears to be in good general health, Eyes - Sclerae nonicteric. Conjunctivae clear, ENMT - No lesions noted in the oral cavity, Neck - No mass or thyromegaly, Hematologic/Lymphatic - No cervical, clavicular, or axillary adenopathy, Respiratory - Lungs are clear with good air movement bilaterally, Cardiovascular - Heart rhythm is regular. There is no murmur, gallop, or rub noted, Abdomen - Moderately distended but soft. Liver and spleen are not enlarged. There is no abdominal mass or ascites noted and there is no inguinal adenopathy, Back/Spine - No spine or CVA tenderness noted, Extremities - No edema, Integumentary - No rashes. No suspicious skin lesions noted, Neurologic - No focal neurologic deficits noted. Impression: 1. Patient with iron deficiency anemia. This is almost certainly due to heavy menstrual blood loss. She has been transfused a total of 3 units of PRBC, and she is currently on oral iron supplementation. 2. She had recently presented with right upper quadrant abdominal pain. Her gallbladder ultrasound and CT abdomen/pelvis were unrevealing. By her account, her further evaluation in [place] showed evidence of nonfunctioning gallbladder. 3. She has anxiety/depression. 4. She indicates that she had been diagnosed with rheumatoid arthritis at age 18 months. Plan: The laboratory findings and clinic complications were reviewed with the patient. I will recheck her CBC and serum iron studies today. If she does appear to be responding, she can just continue with oral iron supplementation, though I did suggest she try increasing it to twice daily. If she cannot get it corrected with oral iron, she will be given the option to have parenteral iron replacement with Injectafer. In the meantime, as a precaution, I also am going to check a von Willebrand screen just to make sure she does not have an underlying bleeding disorder. In addition, with her sed rate and CRP having been elevated, I will repeat those studies along with TYRELL screen, RA titer, and an anti-CCP Ab. Signed By: Trace Terry M.D. <<Signature on File>>
[2020-09-08 12:43] LABS: CENTROMERE B ANTIBODY <1.0 NEG AI (<1.0 NEG); JO-1 ANTIBODY <1.0 NEG AI (<1.0 NEG); RNP ANTIBODY <1.0 NEG AI (<1.0 NEG); SCL-70 ANTIBODY <1.0 NEG AI (<1.0 NEG); SJOGREN'S ANTIBODY (SS-A) 1.5 POS AI (<1.0 NEG); SM ANTIBODY <1.0 NEG AI (<1.0 NEG); SS-B <1.0 NEG AI (<1.0 NEG)
[2020-09-08 15:12] LABS: THYROID PEROXIDASE ANTIBODIES 1 IU/mL (<9)
[2020-09-09 11:44] LABS: COMPLEMENT, TOTAL (CH50) >60 U/mL (31-60)
[2020-09-09 12:47] LABS: COMPLEMENT COMPONENT C3C 147 mg/dL (83-193); COMPLEMENT COMPONENT C4C 23 mg/dL (15-57)
[2020-09-10 15:22] LABS: Partial Thromboplastin Time, A 30 sec (23-32)
[2020-09-10 16:52] LABS: Factor Viii, Activity 50 % normal (50-180)
[2020-09-12 12:18] LABS: ANA PATTERN Nuclear, Homogeneous; ANA SCREEN, IFA POSITIVE (NEGATIVE)
[2020-09-12 19:19] LABS: Von Willebrand Factor Ag 73 % (50-217)
[2020-09-12 20:53] LABS: Von Willebrand Factor (Rcf) 63 % normal (42-200)
[2020-09-12 22:47] LABS: DNA AB (DS) CRITHIDIA,IFA NEGATIVE (NEGATIVE)
== END 2020-09-07 09:39 | disposition home or self-care (01) ==
LOC: ONCMED 09:39
PROVIDERS: Internal Medicine Medical Oncology; PCP Family Medicine; Visit Provider Internal Medicine Hematology & Oncology
DX: D50.0 Iron deficiency anemia secondary to blood loss (chronic) (principal); N92.0 Excessive and frequent menstruation with regular cycle; R70.0 Elevated erythrocyte sedimentation rate; R79.82 Elevated C-reactive protein (CRP); R10.11 Right upper quadrant pain; F41.8 Other specified anxiety disorders; M06.9 Rheumatoid arthritis, unspecified
CPT/HCPCS: 82728; 83540; 83550; 85025; 85240; 85245; 85246; 85651; 86141; 86431; 99205

== ENCOUNTER → 2021-02-14 08:37 | Outpatient (BNVA) | payer OTHER, BC, SELFPAY | PROVIDERS: PCP Family Medicine; Visit Provider Psychiatry & Neurology Psychiatry | DX: F41.1 Generalized anxiety disorder (principal); F17.200 Nicotine dependence, unspecified, uncomplicated | CPT/HCPCS: 99204 ==

== ENCOUNTER → 2021-02-22 12:02 | Outpatient (BNVA) | payer OTHER, BC, SELFPAY | PROVIDERS: PCP Family Medicine; Visit Provider Social Worker | DX: F41.1 Generalized anxiety disorder (principal) | CPT/HCPCS: 90834 ==

== ENCOUNTER → 2021-03-15 12:06 | Outpatient (BNVA) | payer OTHER, BC, SELFPAY | PROVIDERS: PCP Family Medicine; Visit Provider Social Worker | DX: F41.1 Generalized anxiety disorder (principal) | CPT/HCPCS: 90832 ==

== ENCOUNTER 2022-05-08 21:58 | Emergency (ER) | payer OTHER, BC, SELFPAY ==
[2022-05-08 22:29] VITALS: BP 121/82; PULSE 72; RESP 18; TEMP 37.1; O2SAT 100; BMI 35.2
[2022-05-08 23:48] LABS: Basophils % 0.6 %; Eosinophils # 0.2 10^3/uL (0.0-0.8); Eosinophils % 2.5 %; Hematocrit 32.8 % (37.0-47.0); Hemoglobin 9.6 g/dL (11.5-15.3); Lymphocytes # 1.7 10^3/uL (0.8-4.8); Lymphocytes % 24.2 %; Mean Corpuscular HGB Conc 29.3 g/dL (30.0-36.0); Mean Corpuscular Hemoglobin 19.4 pg (28.0-34.0); Mean Corpuscular Volume 66.1 fl (81-99); Monocytes # 0.5 10^3/uL (0.2-0.9); Monocytes % 7.6 %; Neutrophils # 4.62 10^3/uL (1.8-7.7); Neutrophils % 64.7 %; Nucleated Red Blood Cells % 0 %; Platelet Count 234 10^3/cmm (130-400); Red Blood Count 4.96 10^6/uL (4.1-5.3); Red Cell Distribution Width 21.4 % (12.1-15.1); White Blood Count 7.1 10^3/uL (4.0-10.0)
[2022-05-08 23:50] LABS: Anion Gap 13.9 (5-19); Blood Urea Nitrogen 14 mg/dL (6-20); Calcium 9.1 mg/dL (8.5-10.5); Carbon Dioxide 24 mmol/L (22-29); Chloride 102 mmol/L (98-107); Glomerular Filtration Rate 115.9 mL/min (90-130); Glucose 97 mg/dL (65-115); Mean Platelet Volume 11.2 fL (7.4-10.4); Osmolality Calculated 282 mOsm/kg (285-295); Potassium 3.9 mmol/L (3.5-5.1); Sodium 136 mmol/L (136-145)
--- NOTE | 2022-05-09 00:37 | ED_ITS ---
HPI - General Adult General: Chief complaint: General Medical Stated complaint: Wants blood checked Time Seen by Provider: 05/09/22 00:36 History of Present Illness: 31-year-old female comes in today for concerns of anemia. Patient has had to have transfusions before in the past with a hemoglobin as low as 4 prior to surgery. Patient reports she has noticed lately that she has been more tired and winded at times so she was concerned her blood count has dropped more. Patient does take iron occasionally but does not tolerate. Review of Systems General: Reports: 10 or more systems reviewed and unremarkable except in HPI and below Const: Reports: fatigue [facility] ED PFSH: Medical History (Updated 05/09/22 @ 00:42 by CAILIN Pickard) Anemia Anxiety and depression Cannabis dependence, uncomplicated Gallbladder problem HIDA scan shows intermittent nonfunction. States to be scheduled for cholecystectomy. Oligomenorrhea Post-traumatic stress disorder, chronic Psychiatric care Surgical History H/O section x4 Family History Father No problems noted. Mother Diabetes Family/Other CAD (coronary artery disease) Father side of the family Diabetes Mother side of the family Hypertension Father side of the family Social History Smoking and tobacco status: current every day smoker cigarettes Packs smoked per day: 0.5 Years cigarettes smoked: 13 [ Other cigarette details: Started age 17. Most smoked 1-1/2 PPD] Quit status (tobacco): has tried quititng Number of times tried to quit tobacco: 1 Second hand smoke exposure: No Alcohol intake: former Household members: spouse Housing: House Marital status: Number of children: 1 Current occupational status: other Details: [employer] Current gender identity: Female Physical Exam Const: COMMON NORMALS: alert HENMT: COMMON NORMALS: normocephalic HEAD & SCALP: normocephalic Eye: GENERAL EYE: appearance normal, both eyes and all related structures Resp: COMMON NORMALS: normal respiratory effort Cardio: COMMON NORMALS: regular rate RATE: regular rate Extremity: COMMON NORMALS: normal to inspection and no pedal edema Neuro: SENSORIUM/ORIENTATION: Yes alert Skin: COMMON NORMALS: no rashes or lesions noted GENERAL SKIN EXAM: no rashes or lesions noted Course Vital Signs: Vital signs: Vital Signs Temperature 98.7 F 05/08/22 22:29 Pulse Rate 72 05/08/22 22:29 Respiratory Rate 18 05/08/22 22:29 Blood Pressure 121/82 05/08/22 22:29 Pulse Oximetry 100 05/08/22 22:29 [facility] - General Adult Medical Decision Making 31-year-old female comes in today for concerns of low blood count. Patient does have a history of significant anemia of unknown cause. Patient has had to have transfusions in the past. Patient has seen a robotic machine operator, Dr. Terry, without specified etiology identified. Patient is supposed to take iron daily but does not tolerate it. Patient felt a little bit more fatigued than usual and was concerned that her iron count was getting low again. On exam patient's mucosa was pink. Respirations were even lungs were clear to auscultation. Vital signs are normal. Differential diagnosis includes anemia, need for blood transfusion, depression. Patient is hemoglobin was 9.6 showing microcytic anemia. Reviewed iron rich diet. Do not recommend transfusion at this time but she needs to continue to monitor it. Did talk to patient about possible iron transfusions to see if that may help restore her iron more effectively than oral iron she will need to talk with her primary care or robotic machine operator for further information. Patient reported understanding. Lab Data : 05/08/22 22:49 05/08/22 22:49 Laboratory Results WBC 7.1 10^3/uL (4.0-10.0) 05/08/22 22:49 RBC 4.96 10^6/uL (4.1-5.3) 05/08/22 22:49 Hgb 9.6 g/dL (11.5-15.3) L 05/08/22 22:49 Hct 32.8 % (37.0-47.0) L 05/08/22 22:49 MCV 66.1 fl (81-99) L 05/08/22 22:49 MCH 19.4 pg (28.0-34.0) L 05/08/22 22:49 MCHC 29.3 g/dL (30.0-36.0) L 05/08/22 22:49 RDW 21.4 % (12.1-15.1) H 05/08/22 22:49 Plt Count 234 10^3/cmm (130-400) 05/08/22 22:49 MPV 11.2 fL (7.4-10.4) H 05/08/22 22:49 Neut % (Auto) 64.7 % 05/08/22 22:49 Lymph % (Auto) 24.2 % 05/08/22 22:49 Daniels % (Auto) 7.6 % 05/08/22 22:49 Eos % (Auto) 2.5 % 05/08/22 22:49 Baso % (Auto) 0.6 % 05/08/22 22:49 Neut # (Auto) 4.62 10^3/uL (1.8-7.7) 05/08/22 22:49 Lymph # (Auto) 1.7 10^3/uL (0.8-4.8) 05/08/22 22:49 Daniels # (Auto) 0.5 10^3/uL (0.2-0.9) 05/08/22 22:49 Eos # (Auto) 0.2 10^3/uL (0.0-0.8) 05/08/22 22:49 Baso # (Auto) 0.0 10^3/uL (0.0-0.1) 05/08/22 22:49 Nucleated RBC % (auto) 0 % 05/08/22 22:49 Nucleated RBCs # 0.0 /100WBC 05/08/22 22:49 Sodium 136 mmol/L (136-145) 05/08/22 22:49 Potassium 3.9 mmol/L (3.5-5.1) 05/08/22 22:49 Chloride 102 mmol/L (98-107) 05/08/22 22:49 Carbon Dioxide 24 mmol/L (22-29) 05/08/22 22:49 Anion Gap 13.9 (5-19) 05/08/22 22:49 BUN 14 mg/dL (6-20) 05/08/22 22:49 Creatinine 0.6 mg/dL (0.5-0.9) 05/08/22 22:49 GFR Calculation 115.9 mL/min (90-130) 05/08/22 22:49 Glucose 97 mg/dL (65-115) 05/08/22 22:49 Calculated Osmolality 282 mOsm/kg (285-295) L 05/08/22 22:49 Calcium 9.1 mg/dL (8.5-10.5) 05/08/22 22:49 Discharge Plan Discharge Patient Disposition: Home Clinical Impression: Anemia Condition: Stable Prescriptions: No Action sertraline [Zoloft] 50 mg tablet 50 mg PO DAILY Qty: 30 1RF Discharge Orders: Discharge ED (Routine); Ordered 05/09/22 Ordered By: Joseph Raygoza Referrals: Urmila Montejo MD [Primary Care Provider] - Discharge Diet: Usual diet Discharge Activity: Increase activity as tolerated Patient Instructions: Iron Rich Diet (ED) Activity Restrictions/Additional Instructions: Drink plenty of fluids. Eat foods higher in iron. Follow-up with primary care. Follow-up with robotic machine operator for further evaluation and instruction. Coding Level of Care Code ED Primary Class Teacher for Marcy Castaneda
== END 2022-05-09 01:00 | disposition home or self-care (01) ==
PROVIDERS: Emergency Medicine; Emergency Provider Nurse Practitioner Family; PCP Family Medicine
DX: D64.9 Anemia, unspecified (principal); F17.210 Nicotine dependence, cigarettes, uncomplicated
CPT/HCPCS: 80048; 85025; 99283

== ENCOUNTER 2023-10-07 20:43 | Emergency (ER) | payer OTHER, BC, MEDICAID, SELFPAY ==
[2023-10-07 20:48] VITALS: BP 151/73; PULSE 89; RESP 17; TEMP 37; O2SAT 98; BMI 33.9
--- NOTE | 2023-10-07 21:10 | ECG_ITS ---
[facility] Test Date: 2023-10-07 Pat Name: Monisha Armendariz Department: Room: Gender: Female Test Analyst: : 1990 Requested By: Luke Thomson Order Number: [id number] [place] MD: Yuriy Rodriguez M.D. Measurements Intervals [place] Rate: 70 P: 42 MS: 160 QRS: 60 QRSD: 95 T: 71 QT: 381 QTc: 413 Interpretive Statements SINUS RHYTHM No previous ECG available for comparison Electronically Signed On 10-08-2023 14:39:11 NUTRITION EDUCATOR by Yuriy Rodriguez M.D. [id number]
--- NOTE | 2023-10-07 21:10 | XRR_ITS ---
PROCEDURE INFORMATION: Exam: XR Chest Exam date and time: 10/07/2023 9:44 PM Age: 33 years old Clinical indication: Other: Weakness TECHNIQUE: Imaging protocol: Radiologic exam of the chest. Views: 1 view. COMPARISON: CR XR chest 1V portable [id number] 08/06/2020 11:00 AM FINDINGS: Lungs: Unremarkable. No consolidation. Pleural spaces: Unremarkable. No pleural effusion. No pneumothorax. Heart/Mediastinum: Unremarkable. No cardiomegaly. Bones/joints: Unremarkable. XR/XR chest 1V portable [id number] IMPRESSION: No acute findings.
--- NOTE | 2023-10-07 21:10 | W.ED.GENADLT ---
HPI - General Adult General: Chief complaint: General Medical Stated complaint: body aches x2 weeks, tired Time Seen by Provider: 10/07/23 20:55 History of Present Illness: 33-year-old female presents emergency department complaints that she has been increasingly weak and fatigued worse over the previous 24 hours. She states that she has had intermittent weakness and fatigue in the past but has become more than normal for her over the last 2 weeks. She states that even attempting to get out of a chair or out of bed seems to have significant increase in her generalized muscle pain. She describes the pain as a intermittent aching all over type pain that is a 4 out of 10. She denies recent sick contacts that she is aware of. She denies fevers chills or night sweats. She denies chest pain or shortness of breath. Associated symptoms: Reports malaise Review of Systems General: Reports: 10 or more systems reviewed and unremarkable except in HPI and below Const: Reports: body aches, fatigue and malaise PFS ED PFSH: Medical History Anemia Anxiety and depression Cannabis dependence, uncomplicated Gallbladder problem HIDA scan shows intermittent nonfunction. States to be scheduled for cholecystectomy. Oligomenorrhea Post-traumatic stress disorder, chronic Psychiatric care Surgical History H/O section x4 Family History Father No problems noted. Mother Diabetes Family/Other CAD (coronary artery disease) Father side of the family Diabetes Mother side of the family Hypertension Father side of the family Social History Smoking and tobacco/nicotine status: current every day tobacco/nicotine user cigarettes Packs smoked per day: 0.5 Years cigarettes smoked: 13 [ Other cigarette details: Started age 17. Most smoked 1-1/2 PPD] Quit status (tobacco/nicotine): has tried quititng Number of times tried to quit tobacco: 1 Second hand smoke exposure: No Alcohol intake: former Substance/Drug Use: never Household members: spouse Housing: House Marital status: Number of children: 1 Current occupational status: other Details: [employer] Do you think of yourself as: Straight/Heterosexual Current gender identity: Female Physical Exam Narrative: EXAM NARRATIVE: Constitutional: the patient appears well nourished and with normal development. Vital signs reviewed as documented. HENMT: Normocephalic, atraumatic. Extermal ears with normal appearance without drainage. Nose without drainage, normal appearance. Mucus membranes moist. Neck is supple, No jugular venous distension, trachea is midline, no appreciable carotid bruits. No lymphadenopathy. No meningeal signs. Flexion, extension and lateral rotation is without pain. Eyes: Pupils are equal, round, reactive to light and accommodation. No scleral icterus. Extra-ocular movement are intact. Thorax is symmetrical and with equal rise and fall with respirations. Resp: Lungs are clear to auscultation. No wheezes, rales, crackles or ronchi at present. Cardio: Regular rate and rhythm. Positive S1, S2. No appreciable murmurs, rubs or gallops. GI: Abdominal exam reveals normal bowel sounds to all quadrants. No organomegaly. No obvious palpable masses noted. No hepatomegally appreciated. Soft, nontender to palpation. Extremity: Extremities are non-edematous and both femoral and pedal pulses are 2+ and equal bilaterally. Moves all extremities well, sensation in all extremities. Neuro: Alert and oriented x4, person, place, time and situation. Cranial nerves II through XII are grossly intact, there is no focal neurological deficits that I can appreciate at present. Motor strength in the upper and lower extremities are equal and bilateral 5/5. Psych: Cooperative, calm, normal thought process, appropriate judgment. Skin: No lesions, rashes. Pale appearing, otherwise no gross abnormalities noted. Back: Symmetrical, no obvious deformity, No CVA tenderness Course Vital Signs: Vital signs: Vital Signs Temperature 98.1 F 10/08/23 03:18 Pulse Rate 59 L 10/08/23 03:18 Respiratory Rate 16 10/08/23 03:18 Blood Pressure 134/42 10/08/23 03:18 Pulse Oximetry 100 10/08/23 03:18 Oxygen Delivery Me thod Room Air 10/08/23 00:44 MDM - General Adult Medical Decision Making Physical exam completed and documented I will obtain a CBC, CMP as well as viral panel and radiographic examination and reevaluate. Differential Diagnosis Anemia, viral illness, electrolyte abnormality, UTI, Medical Records I reviewed the patient's medical records. Lab Data I reviewed the patient's lab results. 10/07/23 21:53 10/07/23 21:53 Radiology Impressions Chest X-Ray 10/07/23 21:10 IMPRESSION: No acute findings. Laboratory Results WBC 6.97 10^3/uL (3.29-11.43) 10/07/23 21:53 RBC 4.61 10^6/uL (3.85-5.65) 10/07/23 21:53 Hgb 8.20 g/dL (11.27-16.99) L 10/07/23 21:53 Hct 30.2 % (36-47) L 10/07/23 21:53 MCV 65.5 fl (85-98) L 10/07/23 21:53 MCH 17.8 pg (27-33) L 10/07/23 21:53 MCHC 27.2 g/dL (30-55) L 10/07/23 21:53 RDW 19.3 % (12.1-15.1) H 10/07/23 21:53 Plt Count 166 10^3/cmm (157-399) 10/07/23 21:53 MPV 11.4 fL (7.4-10.4) H 10/07/23 21:53 Neut % (Auto) 66.8 % 10/07/23 21:53 Lymph % (Auto) 22.2 % 10/07/23 21:53 [place] % (Auto) 8.6 % 10/07/23 21:53 Eos % (Auto) 1.4 % 10/07/23 21:53 Baso % (Auto) 0.6 % 10/07/23 21:53 Neut # (Auto) 4.65 10^3/uL (1.8-7.7) 10/07/23 21:53 Lymph # (Auto) 1.6 10^3/uL (0.8-4.8) 10/07/23 21:53 [place] # (Auto) 0.6 10^3/uL (0.2-0.9) 10/07/23 21:53 Eos # (Auto) 0.1 10^3/uL (0.0-0.8) 10/07/23 21:53 Baso # (Auto) 0.0 10^3/uL (0.0-0.1) 10/07/23 21:53 Nucleated RBC % (auto) 0 % 10/07/23 21:53 Nucleated RBCs # 0.0 /100WBC 10/07/23 21:53 Sodium 139 mmol/L (136-145) 10/07/23 21:53 Potassium 3.8 mmol/L (3.5-5.1) 10/07/23 21:53 Chloride 105 mmol/L (98-107) 10/07/23 21:53 Carbon Dioxide 25 mmol/L (22-29) 10/07/23 21:53 Anion Gap 12.8 (5-19) 10/07/23 21:53 BUN 12 mg/dL (6-20) 10/07/23 21:53 Creatinine 0.8 mg/dL (0.5-0.9) 10/07/23 21:53 GFR Calculation 82.1 mL/min (90-130) L 10/07/23 21:53 Glucose 110 mg/dL (65-115) 10/07/23 21:53 Calculated Osmolality 288 mOsm/kg (285-295) 10/07/23 21:53 Calcium 9.2 mg/dL (8.5-10.5) 10/07/23 21:53 Magnesium 1.9 mg/dL (1.7-2.3) 10/07/23 21:53 Total Bilirubin 0.2 mg/dL (0.15-1.2) 10/07/23 21:53 AST 14 U/L (0-32) 10/07/23 21:53 ALT 11 U/L (0-33) 10/07/23 21:53 Alkaline Phosphatase 102 U/L (35-105) 10/07/23 21:53 Total Protein 7.3 g/dL (6.6-8.7) 10/07/23 21:53 Albumin 4.0 g/dL (3.5-5.2) 10/07/23 21:53 Globulin 3.3 g/dL (1.3-4.6) 10/07/23 21:53 HCG, Qual Negative (Negative) 10/07/23 22:27 Urine Color Yellow (Yellow) 10/07/23 22:27 Urine Appearance Clear (CLEAR) 10/07/23 22:27 Urine pH 5 (5-7) 10/07/23 22:27 Ur Specific [place] 1.025 (1.005-1.030) 10/07/23 22:27 Urine Protein Neg (Negative) 10/07/23 22: Urine Glucose (UA) Norm (Normal) 10/07/23 22:27 Urine Ketones Negative (Negative) 10/07/23 22:27 Urine Blood Neg (Negative) 10/07/23 22:27 Urine Nitrate Negative (Negative) 10/07/23 22: Urine Bilirubin Neg (Negative) 10/07/23 22:27 Urine Urobilinogen 1 mg/dL (Negative) H 10/07/23 22:27 Ur Leukocyte Esterase Negative (Negative) 10/07/23 22:27 Blood Type O Positive 10/07/23 23:29 Rho(D) Type Rh positive 10/07/23 23:29 Antibody Screen Negative 10/07/23 23:29 Antibody Identification Not Reportable 10/07/23 23:29 Crossmatch See Detail 10/07/23 23:29 All radiology interpretation(s) finalized by discharge Discharge Plan Discharge Patient Disposition: Home Clinical Impression: Anemia Qualifiers: Anemia type: unspecified type Qualified Code(s): D64.9 - Anemia, unspecified Condition: Stable Prescriptions: No Action amoxicillin-pot clavulanate 875-125 mg tablet 1 tab PO BID 7 Days Qty: 14 0RF fluticasone propionate [Flonase Allergy Relief] 50 mcg/actuation spray,suspension 2 spray intranasal DAILY Qty: 16 0RF Rx Instructions: administer into each nostril Zyrtec 10 mg capsule 10 mg PO DAILY Qty: 30 0RF Discharge Orders: Discharge ED (Routine); Ordered 10/08/23 Ordered By: Luke Thomosn Referrals: Urmila Montejo MD [Primary Care Provider] - Discharge Diet: Advance as tolerated Discharge Activity: Resume usual activity Patient Instructions: Opioid Safety, Pain Management Activity Restrictions/Additional Instructions: Activity Restrictions/Additional Instructions: Thank you for choosing [facility] for your healthcare needs today. Please realize that you were seen in the Emergency Department and that we are providing you with an emergency medical screening exam and this may not be a complete and all inclusive of all the testing and or medical work-up that you may need to determine your ailment or severity of your illness. It is very important that you follow-up as instructed with your Primary care provider or Specialist for additional evaluation and to discuss your medical treatment plan. You may return to the Emergency Department should you have concerns or if your condition changes or worsens in any way. Coding Level of Care Code ED Tile Mechanic Helper for Marcy Castaneda
[2023-10-07 22:01] LABS: Basophils % 0.6 %; Eosinophils # 0.1 10^3/uL (0.0-0.8); Eosinophils % 1.4 %; Hematocrit 30.2 % (36-47); Lymphocytes # 1.6 10^3/uL (0.8-4.8); Lymphocytes % 22.2 %; Mean Corpuscular HGB Conc 27.2 g/dL (30-55); Mean Corpuscular Hemoglobin 17.8 pg (27-33); Mean Corpuscular Volume 65.5 fl (85-98); Monocytes # 0.6 10^3/uL (0.2-0.9); Monocytes % 8.6 %; Neutrophils # 4.65 10^3/uL (1.8-7.7); Neutrophils % 66.8 %; Nucleated Red Blood Cells % 0 %; Platelet Count 166 10^3/cmm (157-399); Red Blood Count 4.61 10^6/uL (3.85-5.65); Red Cell Distribution Width 19.3 % (12.1-15.1); White Blood Count 6.97 10^3/uL (3.29-11.43)
[2023-10-07 22:12] LABS: Mean Platelet Volume 11.4 fL (7.4-10.4)
[2023-10-07 22:18] LABS: Alanine Aminotransferase 11 U/L (0-33); Alkaline Phosphatase 102 U/L (35-105); Anion Gap 12.8 (5-19); Aspartate Amino Transferase 14 U/L (0-32); Blood Urea Nitrogen 12 mg/dL (6-20); Calcium 9.2 mg/dL (8.5-10.5); Carbon Dioxide 25 mmol/L (22-29); Chloride 105 mmol/L (98-107); Globulin 3.3 g/dL (1.3-4.6); Glomerular Filtration Rate 82.1 mL/min (90-130); Glucose 110 mg/dL (65-115); Magnesium 1.9 mg/dL (1.7-2.3); Osmolality Calculated 288 mOsm/kg (285-295); Potassium 3.8 mmol/L (3.5-5.1); Sodium 139 mmol/L (136-145); Total Bilirubin 0.2 mg/dL (0.15-1.2); Total Protein 7.3 g/dL (6.6-8.7)
[2023-10-07 22:36] LABS: Add Urine Microscopic? NO; Charge for UA Resulting for Rev
[2023-10-07 22:39] LABS: Bilirubin Urine Neg (Negative); Blood Urine Neg (Negative); Glucose Urine UA Norm (Normal); Ketones Urine Negative (Negative); Nitrate Urine Negative (Negative); Protein Urine Neg (Negative); Specific Gravity, Urine 1.025 (1.005-1.030); Urine Appearance Clear (CLEAR); Urine Color Yellow (Yellow); pH Urine 5 (5-7)
[2023-10-07 22:40] LABS: HCG Qualitative Urine. Negative (Negative); Leukocyte Esterase Urine Negative (Negative); Urobilinogen Urine 1 mg/dL (Negative)
[2023-10-08] VITALS (22 sets, daily range): BP systolic 112–137; BP diastolic 42–93; PULSE 59–96; RESP 16–25; TEMP 36.7–36.8; O2SAT 91–100
--- NOTE | 2023-10-08 00:55 | PC.NURSE ---
pt care this nurse took over care of pt at this time.
--- NOTE | 2023-10-08 01:49 | PC.NURSE ---
pt care pt states she is upset that she hasn't had her blood yet and she wants to leave. pt was under the impression we gave her her blood transfusion while she was sleeping. this nurse informed physician who spoke to pt.
--- NOTE | 2023-10-08 03:19 | PC.NURSE ---
pt transfusion physician discussed with patient a faster infusion than normal d/t patient wanting to leave ama. pt verbalizes understanding of all risks/ benefits. physician at bedside for majority of transfusion.
== END 2023-10-08 03:26 | disposition home or self-care (01) ==
PROVIDERS: Emergency Provider Internal Medicine; PCP Family Medicine
DX: D64.9 Anemia, unspecified (principal); F17.210 Nicotine dependence, cigarettes, uncomplicated
CPT/HCPCS: 36415; 36430; 71045; 80053; 81003; 81025; 83735; 85025; 86850; 86870; 86900; 86920; 93005; 99285; P9016

== ENCOUNTER 2024-05-04 12:14 | Emergency (ER) | payer OTHER, BC, MEDICAID, SELFPAY ==
[2024-05-04 13:01] VITALS: BP 137/100; PULSE 94; RESP 18; TEMP 36.8; O2SAT 99; BMI 35.2
[2024-05-04 13:18] LABS: Monocytes # 0.5 10^3/uL (0.2-0.9); Nucleated Red Blood Cells % 0 %
[2024-05-04 13:24] LABS: Basophils % 0.5 %; Eosinophils # 0.1 10^3/uL (0.0-0.8); Eosinophils % 1.5 %; Hematocrit 39.3 % (36-47); Lymphocytes # 1.6 10^3/uL (0.8-4.8); Lymphocytes % 23.7 %; Mean Corpuscular Hemoglobin 21.1 pg (27-33); Mean Corpuscular Volume 72.6 fl (85-98); Mean Platelet Volume 10.9 fL (7.4-10.4); Monocytes % 7.9 %; Neutrophils # 4.37 10^3/uL (1.8-7.7); Neutrophils % 65.9 %; Platelet Count 246 10^3/cmm (157-399); Red Blood Count 5.41 10^6/uL (3.85-5.65); Red Cell Distribution Width 19.9 % (12.1-15.1); White Blood Count 6.62 10^3/uL (3.29-11.43)
[2024-05-04 13:34] LABS: Alanine Aminotransferase 17 U/L (0-33); Albumin Level 4.3 g/dL (3.5-5.2); Alkaline Phosphatase 120 U/L (35-105); Anion Gap 17.6 (5-19); Aspartate Amino Transferase 16 U/L (0-32); Blood Urea Nitrogen 15 mg/dL (6-20); Calcium 9.2 mg/dL (8.5-10.5); Carbon Dioxide 23 mmol/L (22-29); Chloride 100 mmol/L (98-107); Creatinine Clr Calc Pharmacy 139.0529; Globulin 3.8 g/dL (1.3-4.6); Glomerular Filtration Rate 95.8 mL/min (90-130); Glucose 100 mg/dL (65-115); Lipase 34 U/L (13-60); Osmolality Calculated 285 mOsm/kg (285-295); Potassium 3.6 mmol/L (3.5-5.1); Sodium 137 mmol/L (136-145); Total Bilirubin 0.2 mg/dL (0.15-1.2); Total Protein 8.1 g/dL (6.6-8.7)
[2024-05-04 13:35] LABS: Slide Review Slide Review Perform
[2024-05-04 13:37] LABS: HCG, Serum Qual Negative (Negative)
--- NOTE | 2024-05-04 16:10 | USR_ITS ---
PROCEDURE INFORMATION: Exam: US Abdomen; Limited Exam date and time: 05/04/2024 4:24 PM Age: 33 years old Clinical indication: Abdominal pain; Generalized; Additional info: Abd pain TECHNIQUE: Imaging protocol: Real time ultrasound of the abdomen with image documentation. Limited exam focused on the region of clinical interest. COMPARISON: US gall bladder [id number] 08/06/2020 11:28 AM FINDINGS: Biliary ducts: The gallbladder and bile ducts are unremarkable. The liver, pancreas and right kidney are unremarkable. No mass or fluid collection noted. US/US gall bladder [id number] IMPRESSION: No acute findings.
--- NOTE | 2024-05-04 16:15 | ED_ITS ---
HPI - Abdominal Pain 2 General: Chief Complaint: Abdominal Pain Stated Complaint: abd pain Time Seen by Provider: 05/04/24 16:03 Source: patient Mode of arrival: ambulatory Limitations: no limitations History of Present Illness: 33-year-old female who states she has storey d issues with her gallbladder she states for 3 years she states that it is increasingly worsening she been having some epigastric right upper quadrant pain today she states now is since completely resolved states she had testing done 3 years ago and was told she needed to have her gallbladder out. Had some nausea denies any fever denies any worsening proving factors. Associated Symptoms: Denies chills, diarrhea, fever(s), nausea and vomiting Review of Systems 2 Const: Denies: fever(s), chills, body aches or change in appetite ENMT: Denies: throat pain or dental pain Card: Denies: chest pain Resp: Denies: dyspnea GI: Reports: abdominal pain; Denies: nausea, vomiting or diarrhea Musc: Denies: neck pain or back pain Skin/Breast: Denies: rash Neuro: Denies: headache(s) PFSH ED 2 PFSH: Medical History Post-traumatic stress disorder, chronic Cannabis dependence, uncomplicated Psychiatric care Anxiety and depression Gallbladder problem HIDA scan shows intermittent nonfunction. States to be scheduled for cholecystectomy. Oligomenorrhea Anemia Surgical History H/O section x4 Family History Father No problems noted. Mother Diabetes Family/Other CAD (coronary artery disease) Father side of the family Diabetes Mother side of the family Hypertension Father side of the family Social History Smoking and tobacco/nicotine status: current every day tobacco/nicotine user cigarettes Packs smoked per day: 0.5 Years cigarettes smoked: 13 [ Other cigarette details: Started age 17. Most smoked 1-1/2 PPD] Quit status (tobacco/nicotine): has tried quititng Number of times tried to quit tobacco: 1 Second hand smoke exposure: No Alcohol intake: former Substance/Drug Use: never Household members: spouse Housing: House Marital status: Number of children: 1 Current occupational status: other Details: [employer] Do you think of yourself as: Straight/Heterosexual Current gender identity: Female Physical Exam 2 Const: COMMON NORMALS: no acute distress, patient oriented x3 and healthy appearing HENMT: COMMON NORMALS: normocephalic and atraumatic HEAD & SCALP: n ormocephalic and atraumatic Neck/C-Spine: COMMON NORMALS: full ROM and supple Chest: COMMONS NORMALS: normal inspection of the chest Resp: COMMON NORMALS: normal respiratory effort Cardio: COMMON NORMALS: regular rate, regular rhythm and No murmurs present (Cardio) RATE: regular rate RHYTHM: regular rhythm GI: COMMON NORMALS: Normal to inspection, nondistended, normoactive bowel sounds present, Soft to palpation, non-tender and no masses PALPATION: Yes Soft to palpation Extremity: COMMON NORMALS: normal to inspection and full ROM Neuro: COMMON NORMALS: patient oriented x3, moves all extremities and no focal motor deficits Psych: COMMON NORMALS: mental status grossly normal, Normal thought process present and cooperative THOUGHT PROCESS: Normal thought process present Skin: COMMON NORMALS: no rashes or lesions noted and no wounds GENERAL SKIN EXAM: no rashes or lesions noted Course 2 Vital Signs: Vital signs: Vital Signs Temperature 98.2 F 05/04/24 13:01 Pulse Rate 94 05/04/24 13:01 Respiratory Rate 18 05/04/24 13:01 Blood Pressure 137/100 05/04/24 13:01 Pulse Oximetry 99 05/04/24 13:01 Oxygen Delivery Me thod Room Air 05/04/24 13:01 MDM - Abdominal Pain Medical Decision Making Patient presents here with abdominal pain ultrasound here showed no signs of cholecystitis blood works normal she has no pain here we will get her follow-up with surgery she is return if worsening she understands agrees to plan. Medical Records I reviewed the patient's medical records. Lab Data I reviewed the patient's lab results. 05/04/24 13:09 05/04/24 13:09 Labs/Radiology: Laboratory Results WBC 6.62 10^3/uL (3.29-11.43) 05/04/24 13:09 RBC 5.41 10^6/uL (3.85-5.65) 05/04/24 13:09 Hgb 11.40 g/dL (11.27-16.99) 05/04/24 13:09 Hct 39.3 % (36-47) 05/04/24 13:09 MCV 72.6 fl (85-98) L 05/04/24 13:09 MCH 21.1 pg (27-33) L 05/04/24 13:09 MCHC 29.0 g/dL (30-55) L 05/04/24 13:09 RDW 19.9 % (12.1-15.1) H 05/04/24 13:09 Plt Count 246 10^3/cmm (157-399) 05/04/24 13:09 MPV 10.9 fL (7.4-10.4) H 05/04/24 13:09 Neut % (Auto) 65.9 % 05/04/24 13:09 Lymph % (Auto) 23.7 % 05/04/24 13:09 Mcdonough % (Auto) 7.9 % 05/04/24 13:09 Eos % (Auto) 1.5 % 05/04/24 13:09 Baso % (Auto) 0.5 % 05/04/24 13:09 Neut # (Auto) 4.37 10^3/uL (1.8-7.7) 05/04/24 13:09 Lymph # (Auto) 1.6 10^3/uL (0.8-4.8) 05/04/24 13:09 Mcdonough # (Auto) 0.5 10^3/uL (0.2-0.9) 05/04/24 13:09 Eos # (Auto) 0.1 10^3/uL (0.0-0.8) 05/04/24 13:09 Baso # (Auto) 0.0 10^3/uL (0.0-0.1) 05/04/24 13:09 Nucleated RBC % (auto) 0 % 05/04/24 13:09 Nucleated RBCs # 0.0 /100WBC 05/04/24 13:09 Sodium 137 mmol/L (136-145) 05/04/24 13:09 Potassium 3.6 mmol/L (3.5-5.1) 05/04/24 13:09 Chloride 100 mmol/L (98-107) 05/04/24 13:09 Carbon Dioxide 23 mmol/L (22-29) 05/04/24 13:09 Anion Gap 17.6 (5-19) 05/04/24 13:09 BUN 15 mg/dL (6-20) 05/04/24 13:09 Creatinine 0.7 mg/dL (0.5-0.9) 05/04/24 13:09 GFR Calculation 95.8 mL/min (90-130) 05/04/24 13:09 Glucose 100 mg/dL (65-115) 05/04/24 13:09 Calculated Osmolality 285 mOsm/kg (285-295) 05/04/24 13:09 Calcium 9.2 mg/dL (8.5-10.5) 05/04/24 13:09 Total Bilirubin 0.2 mg/dL (0.15-1.2) 05/04/24 13:09 AST 16 U/L (0-32) 05/04/24 13:09 ALT 17 U/L (0-33) 05/04/24 13:09 Alkaline Phosphatase 120 U/L (35-105) H 05/04/24 13:09 Total Protein 8.1 g/dL (6.6-8.7) 05/04/24 13:09 Albumin 4.3 g/dL (3.5-5.2) 05/04/24 13:09 Globulin 3.8 g/dL (1.3-4.6) 05/04/24 13:09 Lipase 34 U/L (13-60) 05/04/24 13:09 HCG, Qual Negative (Negative) 05/04/24 13:09 XR interpretation done by ED provider, pending radiology final review Discharge Plan Discharge Patient Disposition: Home Clinical Impression: Abdominal pain Condition: Stable Prescriptions: New ondansetron 4 mg tablet,disintegrating 4 mg PO Q6H PRN (Reason: nausea and vomiting) Qty: 14 0RF No Action amoxicillin-pot clavulanate 875-125 mg tablet 1 tab PO BID 7 Days Qty: 14 0RF fluticasone propionate [Flonase Allergy Relief] 50 mcg/actuation spray,suspension 2 spray intranasal DAILY Qty: 16 0RF Rx Instructions: administer into each nostril Zyrtec 10 mg capsule 10 mg PO DAILY Qty: 30 0RF Discharge Orders: Discharge ED (Routine); Ordered 05/04/24 Ordered By: Doc Dickinson Referrals: Gabriel Sin DO [Physician] - 1-3 days Urmila Montejo MD [Primary Care Provider] - Discharge Diet: Advance as tolerated Discharge Activity: Resume usual activity Patient Instructions: Abdominal Pain (ED) Coding Level of Care Code ED Geospatial Information Scientist for Marcy Castaneda
[2024-05-04 16:58] VITALS: BP 102/60; PULSE 69; RESP 16; O2SAT 99
--- NOTE | 2024-05-05 09:00 | DCPLANNER ---
messaged gen surg for er f/u
== END 2024-05-04 17:00 | disposition home or self-care (01) ==
PROVIDERS: Emergency Provider Emergency Medicine; PCP Family Medicine
DX: R10.13 Epigastric pain (principal); R10.11 Right upper quadrant pain; F17.210 Nicotine dependence, cigarettes, uncomplicated
CPT/HCPCS: 36415; 76705; 80053; 83690; 84703; 85025; 99284

== ENCOUNTER 2024-05-19 10:19 | Day surgery (SDC) | payer BC, MEDICAID, SELFPAY ==
[2024-05-19] VITALS (10 sets, daily range): BP systolic 100–156; BP diastolic 54–93; PULSE 61–80; RESP 17–20; TEMP 36.4–36.7; O2SAT 91–100; BMI 36.8
--- NOTE | 2024-05-19 10:46 | ANES.PREANE2 ---
Pre-Anesthetic Assessment Height/Weight: Height 1.7 m Operation Date: 05/19/24 11:50 Proposed Procedures p Laparoscopic Cholecystectomy 43930, K82.8(Not Applicable) - Gabriel Sin DO Familial anesthetic complications: None Was Beta Donovan taken within 24 hours: N/A Was Clonidine taken within 24 hours: N/A Last intake: > 8 hrs Social Tobacco and No alcohol Exam alert, oriented x 3, clear to auscultation bilaterally and regular rate & rhythm Airway Mallampati: Class II Dentition: other (missing) Metabolic Morbid Obesity Anesthetic Plan ASA status: 2 Anesthesia: General Risk of > 500 ml blood loss (7ml/kg in children): No Medications/Allergies Home Medications Medication Instructions Recorded Confirmed Last Taken Type ondansetron 4 mg disintegrating 4 mg PO Q6H PRN nausea and 05/04/24 05/18/24 Unknown Rx tablet vomiting #14 tabs pantoprazole 40 mg tablet,delayed 40 mg PO BID 6 weeks #84 tabs 05/14/24 05/18/24 05/18/24 Rx release (Protonix) Allergies Allergy/AdvReac Type Severity Reaction Status Date / Time No Known Allergies Allergy Verified 05/14/24 15:10 PFSH Anesthesia Medical History Post-traumatic stress disorder, chronic Cannabis dependence, uncomplicated Psychiatric care Anxiety and depression Gallbladder problem HIDA scan shows intermittent nonfunction. States to be scheduled for cholecystectomy. Oligomenorrhea Anemia Surgical History H/O section x4 Family History Father No problems noted. Mother Diabetes Family/Other CAD (coronary artery disease) Father side of the family Diabetes Mother side of the family Hypertension Father side of the family Social History Smoking and tobacco/nicotine status: current every day tobacco/nicotine user (VAP w/nicotine) cigarettes Packs smoked per day: 0.5 Years cigarettes smoked: 13 [ Other cigarette details: Started age 17. Most smoked 1-1/2 PPD] Quit status (tobacco/nicotine): has tried quititng Number of times tried to quit tobacco: 1 Second hand smoke exposure: No Alcohol intake: former Substance/Drug Use: never Household members: spouse Housing: House Marital status: Number of children: 1 Current occupational status: other Details: SAHM Do you think of yourself as: Straight/Heterosexual Current gender identity: Female Data Anesthesia Cardiac Studies: No Data to Display
--- NOTE | 2024-05-19 10:46 | W.PM.OPSUD ---
Surgery/Procedure H&P Update DATE OF PROCEDURE: May 19, 2024 DATE H&P PERFORMED: 05/14/24 H&P UPDATE INFORMATION: I have reviewed H&P completed within last 30 days, I have examined patient prior to procedure and No changes to prior documentation PLANNED PROCEDURE: Operation Date: 05/19/24 11:50 Proposed Procedures p Laparoscopic Cholecystectomy 53568, K82.8(Not Applicable) - Gabriel Sin DO
[2024-05-19 11:26] LABS: OR HCG Qualitative Urine Negative (Negative)
[2024-05-19] MEDS: sodium chloride 0.9% 1,000 ML 30 ML IV (11:28)
[2024-05-19] MEDS: ceFAZolin 2,000 mg SDV 2000 MG IVP (11:36)
[2024-05-19] MEDS: lidocaine-epi 2% PF 1:200,000 20 mL SDV XX (11:48)
--- NOTE | 2024-05-19 12:03 | P.OP_ITS ---
Operative Report Date of procedure: May 19, 2024 Surgeon: Gabriel Sin DO Brief History: This is a very pleasant 33-year-old female presents my office with chronic abdominal pain. HIDA scan showed biliary dyskinesia. Laparoscopic cholecystectomy was indicated. The risks and benefits were explained and documented. Procedure: Preoperative diagnosis: Biliary dyskinesia Postoperative diagnosis: Same Procedure performed: Laparoscopic cholecystectomy Surgeon: Dr. Gabriel Sin DO Estimated blood loss: 5 mL Specimens: Gallbladder to pathology Complications: None apparent Description of procedure: Patient was wheeled into the operative room and placed on the OR table in a supine position. Abdomen was inspected prepped and draped in usual sterile fashion. Time-out was performed and all present were in agreement. A 15 blade scalp was used to make a stab incision in the left upper quadrant and intra- abdominal insufflation was achieved using a Veress needle. After localizing the tissue incisions were made and a 5 millimeter trocar was placed into the umbilicus as well as 2 in the right upper quadrant. A 12 millimeter trocar was placed in the epigastrium. Gallbladder was grasped and elevated. The triangle of Calot was carefully dissected using blunt dissection and electrocautery until the triangle of Calot clearly identified. The cystic duct was clipped proximally and double clipped distally. The duct was then ligated proximally. The cystic artery was doubly clipped and ligated. The gallbladder was then removed from the liver bed using electrocautery. The gallbladder was removed from the abdomen using an Endo-Catch bag through the epigastric incision. The liver bed was inspected and no bleeding was seen. The abdomen was irrigated and suctioned. All ports removed. Skin was washed and dried. Incisions were closed with 4-0 Monocryl in a subcuticular interrupted fashion. Skin glue was applied. Patient tolerated the procedure well.
[2024-05-19] MEDS: HYDROcodone-acetaminophen 7.5-325 mg Tablet 1 TAB PO (13:20)
--- NOTE | 2024-05-19 13:40 | ANE.PACU2 ---
Inpatient post-anesthesia follow up: Airway intact: Yes Vital signs: Temperature 97.6 F Pulse Rate 71 Respiratory Rate 18 Blood Pressure 130/81 Pulse Oximetry 97 Oxygen Delivery Me thod Room Air Oxygen Flow Rate 8 Fraction of Inspir ed Oxygen Hydration adequate: Yes Nausea and vomiting: No Pain level: 1 Mental status: Baseline
== END 2024-05-19 13:40 | disposition home or self-care (01) ==
PROVIDERS: Anesthesiology; PCP Family Medicine Adult Medicine; Visit Provider Surgery
PROC: 0FT44ZZ Resection of Gallbladder, Percutaneous Endoscopic Approach (ICD-10-PCS; CPT 47562; principal; 2024-05-19 11:50)
DX: K80.10 Calculus of gallbladder with chronic cholecystitis without obstruction (principal); E66.01 Morbid (severe) obesity due to excess calories; Z68.36 Body mass index [BMI] 36.0-36.9, adult; F17.210 Nicotine dependence, cigarettes, uncomplicated
CPT/HCPCS: 47562; 81025; 88304; J0690; J1100; J1170; J1200; J2250; J2405; J2704; J2710; J3010; J3490; J7030